=== PATIENT | male | born 1955 | race Caucasian/White ===

== ENCOUNTER 2024-06-29 10:14 | Inpatient (IN) | payer OTHER ==
--- OUTSIDE RECORDS SUMMARY | 2024-06-29 10:20 | XMS REPORT | Continuity of Care Document ---
Author Name Unknown Address [address] [facility] [address] [place] [address] [facility] thconnect Address [address] [facility] [place] [address] Care Team Providers Care Shingle Grader Name Role Phone KARINA HERNANDEZ Primary Care Physician Unavailab Karina Guevara Attending Clinician Unavailable MARIA ELENA SCOTT Attending Clinician Unavailable Maria Elena Scott Attending Clinician Unavailable ADA TRUJILLO Attending Clinician UnavailValente Singh MD Attending Clinician [phone] VALENTE HAMPTON Attending Clinician Unavailabl e Doctor Unassigned, [place] Attending Clinician U SHERRI Valdez Attending Clinician UnavailSherri Seth DO Attending Clinician [phone] Karina Hernandez Admitting Clinician Unavailable Maria Elena Scott Admitting Clinician Unavailable SHERRI BENNETT Admitting Clinician Addy batres Payers Payer Name Policy Type Policy Number Effective Date Expirati on Date Source MEDICARE PART A AND B [id number] 2020 00:00:00 Problems Condition Name Condition Details Condition Category Status Onset Date Resolution Date Last Treatment Date Treating Clinician Comments Source Essential hypertensi on Essential hypertensi on Disease Active 2022-09 00:00: 00 [facility] Dyslipidem ia Dyslipidem ia Disease Active 2022-09 00:00: 00 [facility] H/O aortic valve replacemen t H/O aortic valve replacemen t Disease Active 2022-09 00:00: 00 [facility] CAD (coronary artery disease) CAD (coronary artery disease) Disease Active 2022-09 00:00: 00 [facility] Atrial flutter Atrial flutter Disease Active 2022-09 00:00: 00 [facility] [id number] BPH loc w urin obs/LUTS Problem Active [facility] [id number] Ureterolit hiasis Problem Active [facility] [id number] Kidney stones Problem Active [facility] No known active problems No known active problems Disease [facility] Allergies, Adverse Reactions, Alerts Allergy Name Allergy Type Status Severity Reaction(s) Onset Date Inactive Date Treating Clinician Comments Source No Known Allergie s DA Active U 2022-09 00:00: 00 [facility] NO KNOWN ALLERGIE S Drug Class Active [facility] Social History Social Habit Start Date Stop Date Quantity Comments Source Sexual orientation [facility] History of Tobacco Use [facility] Alcoholic beverage intake 2024-01-17 00:00:00 2024-01-17 00:00:00 Current drinker of alcohol (finding) [facility] History of Social function 2024-01-17 00:00:00 2024-01-17 00:00:00 [facility] Tobacco use and exposure 2023-07-20 00:00:00 2023-07-20 00:00:00 Smokeless tobacco non-user [facility] Alcohol intake 2023-07-20 00:00:00 2023-07-20 00:00:00 Current drinker of alcohol (finding) [facility] Alcohol Comment 2023-07-20 00:00:00 2023-07-20 00:00:00 rare [facility] Exposure to SARS-CoV-2 (event) 2022-01-10 00:00:00 2022-01-20 09:08:00 Not sure [facility] Sex assigned at 1955 00:00:00 1955 00:00:00 [facility] Smoking Status Start Date Stop Date Source Never smoked tobacco [facility] Unknown if ever smoked Unive [facility] Medications Ordered Medication Name Filled Medication Name Start Date Stop Date Current Medication? Ordering Clinician Indication Dosage Frequency Signature (SIG) Comments Components Source albuterol (ProAir HFA) 108 (90 Base) MCG/ACT inhaler 12-05 10:31: 50 Yes 2{puff} Q6H Inhale 2 puffs every 6 (six) hours if needed. [facility] ASPIRIN 81 MG chewable tablet 12-05 10:31: 50 Yes 81mg QD Chew 81 mg 1 (one) time each day. [facility] atorvastati n (Lipitor) 40 MG tablet 12-05 10:31: 50 Yes 40mg QD Take 40 mg by mouth 1 (one) time each day. [facility] Metoprolol Tartrate 75 MG tablet 12-05 10:31: 50 Yes 100mg Q12H 100 mg every 12 (twelve) hours. [facility] OneOpenFeintuch Verio test strip 10-15 00:00: 00 Yes 1{each} 1 each by Other route if needed. [facility] Lancets (OneTouch Delica Plus [id number]) [facility] 10-15 00:00: 00 Yes 1{rachel t} QD 1 Lancet by Other route 1 (one) time each day. USE 1 TO CHECK GLUCOSE ONCE DAILY [facility] albuterol (ProAir HFA) 108 (90 Base) MCG/ACT inhaler 2022-09 09:18: 52 Yes 2{puff} Q6H Inhale 2 puffs every 6 (six) hours if needed. [facility] ASPIRIN 81 MG chewable tablet 2022-09 09:18: 52 Yes 81mg QD Chew 81 mg 1 (one) time each day. [facility] atorvastati n (Lipitor) 40 MG tablet 2022-09 09:18: 52 Yes 40mg QD Take 40 mg by mouth 1 (one) time each day. [facility] Metoprolol Tartrate 75 MG tablet 2022-09 09:18: 52 Yes 75mg Q12H 75 mg every 12 (twelve) hours. [facility] Eliquis 5 MG tablet 2022-09 2-05 00:00: 00 Yes 5mg Q.5D Take 5 mg by mouth in the morning and 5 mg before bedtime. [facility] albuterol (ProAir HFA) 108 (90 Base) MCG/ACT inhaler 2022-09 13:16: 26 Yes 2{puff} Q6H Inhale 2 puffs every 6 (six) hours if needed. [facility] ASPIRIN 81 MG chewable tablet 2022-09 13:16: 26 Yes 81mg QD Chew 81 mg 1 (one) time each day. [facility] atorvastati n (Lipitor) 40 MG tablet 2022-09 13:16: 26 Yes 40mg QD Take 40 mg by mouth 1 (one) time each day. [facility] Metoprolol Tartrate 75 MG tablet 2022-09 13:16: 26 Yes 75mg Q12H 75 mg every 12 (twelve) hours. [facility] metFORMIN XR (Glucophage -XR) 500 MG 24 hr tablet 2022-09 010 00:00: 00 Yes TAKE 2 TABLETS BY MOUTH IN THE MORNING AND ONE IN THE EVENING. [facility] predniSONE (Deltasone) 10 MG tablet 9-21 00:00: 00 Yes 10mg Q.5D Take 10 mg by mouth in the morning and 10 mg before bedtime. prn. [facility] Flomax 0.4 MG Flomax 0.4 MG 3-10 00:00: 00 -06 00:00 :00 No 1{capsu le} QD Flomax 0.4 MG aspirin 81 mg EC tablet 01-26 19:29: 41 Yes 81mg Take 81 mg by mouth daily. [facility] atorvastati n 40 mg tablet 01-26 19:29: 41 Yes 40mg Take 40 mg by mouth at bedtime. [facility] metoprolol tartrate 50 mg tablet 01-26 19:29: 41 Yes 50mg Take 50 mg by mouth 2 (two) times daily. [facility] ProAir HFA 108 (90 Base) MCG/ACT ProAir HFA 108 (90 Base) MCG/ACT No 1{puff_ as_need ed} 6xD ProAir HFA 108 (90 Base) MCG/ACT Lipitor 40 MG Lipitor 40 MG No 1{table t} QD Lipitor 40 MG Metoprolol Tartrate 75 MG Metoprolol Tartrate 75 MG No 1{table t_with_ food} BID Metoprolol Tartrate 75 MG Aspirin 81 81 MG Aspirin 81 81 MG No 1{table t} QD Aspirin 81 81 MG Vital Signs Vital Name Observation Time Observation Value Comments S ource Systolic blood pressure 2024-01-17 15:13:00 131 mm[Hg] [facility] Diastolic blood pressure 2024-01-17 15:13:00 88 mm[Hg] [facility] Heart rate 2024-01-17 15:13:00 73 /min [facility] Body height 2024-01-17 15:13:00 188 [facility] Body weight 2024-01-17 15:13:00 104.327 [facility] BMI 2024-01-17 15:13:00 29.53 kg/m2 [facility] Systolic blood pressure 2023-12-06 15:32:00 137 mm[Hg] [facility] Diastolic blood pressure 2023-12-06 15:32:00 92 mm[Hg] [facility] Heart rate 2023-12-06 15:32:00 62 /min [facility] height 2023-12-06 15:32:00 [facility].5 [facility] Body weight 2023-12-06 15:32:00 [facility]327 [facility] BMI 2023-12-06 15:32:00 28.75 kg/m2 [facility] Systolic blood pressure 2023-08-30 15:19:00 127 mm[Hg] [facility] Diastolic blood pressure 2023-08-30 15:19:00 87 mm[Hg] [facility] Heart rate 2023-08-30 15:19:00 76 /min [facility] Body height 2023-08-30 15:19:00 188 [facility] Body weight 2023-08-30 15:19:00 105.235 [facility] BMI 2023-08-30 15:19:00 29.79 kg/m2 [facility] Systolic blood pressure 2023-07-20 19:13:00 138 mm[Hg] [facility] Diastolic blood pressure 2023-07-20 19:13:00 91 mm[Hg] [facility] Heart rate 2023-07-20 19:13:00 76 /min [facility] Body weight 2023-07-20 19:13:00 107.502 kg [facility] ealt Systolic blood pressure 2022-01-20 14:25:00 121 mm[Hg] [facility] Diastolic blood pressure 2022-01-20 14:25:00 84 mm[Hg] [facility] Heart rate 2022-01-20 14:25:00 76 /min [facility] Body height 2022-01-20 14:25:00 188 cm [facility] Body weight 2022-01-20 14:25:00 106.595 kg [facility] BMI 2022-01-20 14:25:00 30.17 kg/m2 [facility] height 2021-11-18 16:00:00 72 [in_i] Commo n [facility] weight 2021-11-18 16:00:00 142.8 [lb_av] Co mmon [facility] temperature 2021-11-18 16:00:00 97.6 [degF] Com mon [facility] bmi 2021-11-18 16:00:00 19.37 kg/m2 Comm on [facility] oximetry 2021-11-18 16:00:00 96 % Commo n [facility] respiratory rate 2021-11-18 16:00:00 16 /min [facility] blood pressure systolic 2021-11-18 16:00:00 135 mm[Hg] [facility] blood pressure diastolic 2021-11-18 16:00:00 89 mm[Hg] [facility] Procedures Procedure Date / Time Performed Performing Clinicia n Source ECG 12-LEAD 2024-01-20 03:44:52 Maria Elena Scott [facility] 12-LEAD 2023-12-07 01:55:38 [facility] 12-[facility]AD 2023-08-30 15:41:33 [place] laws [facility] ECG 12-LEAD 2023-07-24 01:03:52 Maria Elena Scott [facility] Encounters Start Date/Time End Date/Time Encounter Type Admission Type Attending [facility] Care Department Encounter ID Source 2021-11-18 15:20:03 Outpatient Karina Hernandez [facility] [id number] [facility] 2024-01-17 12:00:00 2024-01-17 12:00:00 Outpatient MARIA ELENA SCOTT [facility] [id number] [facility] 2024-01-17 10:00:00 2024-01-17 10:25:12 Office Visit Maria Elena Scott [facility] [id number] [facility] 2023-12-22 05:20:00 2023-12-22 05:20:00 Outpatient Maria Elena Narayan [facility] [id number] [facility] 2023-12-06 10:15:00 2023-12-06 11:19:52 Office Visit Maria Elena Scott [facility] [id number] [id number] [facility] 2023-11-29 14:00:00 2023-11-29 14:00:00 Outpatient TRUJILLOADA [facility] [id number] [facility] 2023-08-30 09:30:00 2023-08-30 09:53:25 Office Visit [place] laws [facility] [id number] [facility] 2023-08-15 07:30:00 2023-08-15 07:30:00 Outpatient MARIA ELENA SCOTT [facility] [id number] [facility] 2023-08-15 05:21:00 2023-08-15 05:21:00 Outpatient Maria Elena Narayan [facility] [id number] [facility] 2023-07-20 13:15:00 2023-07-20 13:33:10 Office Visit Maria Elena Scott [facility] [id number] [id number] [id number] [facility] 2022-01-20 10:30:00 2022-01-20 10:30:00 Office Visit Valente Hampton [facility] [id number] [id number] [id number] [id number] [facility] 2022-01-20 10:30:00 2022-01-20 09:32:04 Outpatient R VALENTE HAMPTON [facility] [id number] [facility] 2022-01-20 00:00:00 2022-01-20 00:00:00 Orders Only Doctor Unassigned, [place] [facility] [id number] [id number] [id number] [id number] [facility] 2021-11-18 00:00:00 2021-11-18 00:00:00 OFFICE VISIT NEW PT LEVEL 3 STLMLC STLMLC [id number] [facility] 2021-01-26 19:17:00 2021-01-26 21:00:00 Emergency X SHERRI BENNETT [facility] [id number] [facility] 2021-01-26 19:17:00 2021-01-26 21:00:00 Emergency Sherri Bennett [facility] [id number] [id number] [id number] [facility] 2021-01-26 19:10:00 2021-01-26 19:10:00 Emergency X [facility] ERT [id number] [facility] 2021-01-05 21:48:00 2021-01-06 00:09:00 Emergency Sherri Bennett [facility] [id number] [id number] [id number] [id number] [facility] 2021-01-05 21:48:00 2021-01-05 21:48:00 Emergency X SHERRI BENNETT [facility] ERT [id number] [facility] Results Test Description Test Time Test Comments Results Result Co mments Source ECG 12 lead 2024-01-20 03:44:52 Sinus Rhythm -First degree A-V block Suzanne = 268BORDERLINE RHYTHM [facility] GLUCOSE [id number] 07:19:00* Test Item Value Reference Range Interpretation Comme nts GLUCOSE BEDSIDE (test code = GLUBED) 100 MG/DL 70-110 N Performed by cer tified broke beater operator at [facility] BASIC METABOLIC [id number] 12:21:00* Test Item Value Reference Range Interpretation Comme nts SODIUM (test code = NA) 144 mEq/L 134-147 N POTASSIUM (test code = K) 4.4 mEq/L 3.4-5.0 N CHLORIDE (test code = CL) 110 mEq/L 100-108 H CARBON DIOXIDE (test code = CO2) 31 mEq/l 21-33 N ANION GAP (test code = GAP) 7 0-20 N GLUCOSE (test code = GLU) 108 mg/dL 77-141 N BLOOD UREA NITROGEN (test code = BUN) 11 mg/dL 7-25 N GLOMERULAR FILTRATION RATE (test code = GFR) 96.4 80-90 H The Glomerular Filtration Rate is a calculated parameterbased on serum Creatinine, patient age and sex. GFR valuesless than 60 mL/min/1.73 square meters are indicative ofChronic Kidney Disease. Values less than 15 mL/min/1.73square meters indicate Kidney failure. The calculation forGFR is based on the CKD-EPI (2020) calculation. This formulais race indifferent and is the recommended formula for GFRby the National Kidney Foundation for Adults.The GFR will not calculate if the sex is unknown or if thepatient's age is <18 years. CREATININE (test code = CREAT) 0.8 mg/dL 0.6-1.3 N CALCIUM (test code = CA) 9.3 mg/dL 8.0-10.5 N PROTHROMBIN [id number] 12:11:00* Test Item Value Reference Range Interpretation Comme nts PROTHROMBIN TIME PATIENT (test code = PTP) 13.1 SECONDS 9.3-12.9 H INTERNATIONAL NORMAL RATIO (test code = INR) 1.2 0.8-1.2 N TARGET INR BY INDICATION Indication INR1. Prophylaxis of venous thrombosis 2.0 - 3.0 (orthopedic surgery), Prophylaxis of venous thrombosis (other than high-risk surgery), Treatment of Deep Vein Thrombosis/Pulmonary Embolism, Prevention of systemic embolism - Tissue heart valves, Acute Myocardial Infarction (to prevent systemic embolism), Valvular heart disease, Atrial Fibrillation, Bileaflet mechanical valve in aortic position.2. Mechanical prosthetic valves (high risk), 2.5 - 3.5 Presence of Lupus Anticoagulant or Antiphospholipid Antibodies, Prevention of systemic embolism - Acute Myocardial Infarction (to prevent recurrent infarct). CBC W/AUTO [id number] 12:01:00* Test Item Value Reference Range Interpretation Comme nts WHITE BLOOD CELL (test code = WBC) 8.8 x10 3/uL 4.5-11.0 N RED BLOOD CELL (test code = RBC) 4.96 x10 6/uL 4.00-5.60 N HEMOGLOBIN (test code = HGB) 13.2 g/dL 12.5-16.9 N HEMATOCRIT (test code = HCT) 42.4 % 37.5-50.7 N MEAN CELL VOLUME (test code = MCV) 85.5 fL 81.0-99.0 N MEAN CELL HGB (test code = MCH) 26.6 pg 27.0-33.0 L MEAN CELL HGB CONCETRATION (test code = MCHC) 31.1 g/dL 33.0-37.0 L RED CELL DISTRIBUTION WIDTH CV (test code = RDW) 14.5 % 11.5-14.5 N RED CELL DISTRIBUTION WIDTH SD (test code = RDW-SD) 45.4 fL 37.0-54.0 N PLATELET COUNT (test code = PLT) 184 x10 3/uL 150-400 N MEAN PLATELET VOLUME (test c ode = MPV) 10.9 fL 7.0-9.0 H NEUTROPHIL % (test code = NT%) 72.5 % 56.0-77.0 N IMMATURE GRANULOCYTE % (test code = IG%) 0.6 % 0.0-2.0 N LYMPHOCYTE % (test code = LY%) 15.8 % 14.0-32.0 N MONOCYTE % (test code = MO%) 8.1 % 4.8-9.0 N EOSINOPHIL % (test code = EO%) 2.4 % 0.3-3.7 N BASOPHIL % (test code = BA%) 0.6 % 0.0-2.0 N NUCLEATED RBC % (test code = NRBC%) 0.0 % 0-0 N NEUTROPHIL # (test code = NT#) 6.37 x10 3/uL 2.0-7.6 N IMMATURE GRANULOCYTE # (test code = IG#) 0.05 x10 3/uL 0.00-0.03 H LYMPHOCYTE # (test code = LY#) 1.39 x10 3/uL 1.0-3.8 N MONOCYTE # (test code = MO#) 0.71 x10 3/uL 0.1-0.8 N EOSINOPHIL # (test code = EO#) 0.21 x10 3/uL 0.0-0.2 H BASOPHIL # (test code = BA#) 0.05 x10 3/uL 0.0-0.2 N NUCLEATED RBC # (test code = NRBC#) 0.00 x10 3/uL 0.0-0.1 N ECG 12 [id number] 01:55:38Sinus Rhythm -First degree A-V block Suzanne = 240BORDERLINE RHYTHMUT HealthECG 12 [id number] 15:41:33Sinus Rhythm -First degree A-V block Suzanne = 254 BORDERLINE RHYTHMUT HealthGLUCOSE [id number] 20:19:00* Test Item Value Reference Range Interpretation Comme nts GLUCOSE BEDSIDE (test code = GLUBED) 157 MG/DL 70-110 H Performed by cer tified broke beater operator at [facility] [id number] 10:40:00* Test Item Value Reference Range Interpretation Comme nts ACT-ISTAT (test code = ACTI) 347 SEC 74-137 H Performed by cer tified broke beater operator at [facility] [id number] 10:14:00* Test Item Value Reference Range Interpretation Comme nts ACT-ISTAT (test code = ACTI) 336 SEC 74-137 H Performed by cer tified broke beater operator at [facility] [id number] 09:57:00* Test Item Value Reference Range Interpretation Comme nts ACT-ISTAT (test code = ACTI) 342 SEC 74-137 H Performed by cer tified broke beater operator at [facility] [id number] 09:35:00* Test Item Value Reference Range Interpretation Comme nts ACT-ISTAT (test code = ACTI) 336 SEC 74-137 H Performed by cer tified broke beater operator at [facility] [id number] 09:15:00* Test Item Value Reference Range Interpretation Comme nts ACT-ISTAT (test code = ACTI) 309 SEC 74-137 H Performed by cer tified broke beater operator at [facility] [id number] 08:58:00* Test Item Value Reference Range Interpretation Comme nts ACT-ISTAT (test code = ACTI) 266 SEC 74-137 H Performed by cer tified broke beater operator at [facility] GLUCOSE [id number] 06:29:00* Test Item Value Reference Range Interpretation Comme nts GLUCOSE BEDSIDE (test code = GLUBED) 100 MG/DL 70-110 N Performed by cer tified broke beater operator at [facility] - XR CHEST 2 [id number] 11:49:00 [facility] 1955 Sex: M FAX: Karina Aguilar MD [phone] [place]: [address]: PRE FAX: Maria Elena Scott MD [phone] Name: BRIDGER RUCKER [facility] [place] : 1955 Age/S: 67/M [address] [place] [address] Blvd Unit #: [id number] [place]: [place] [address] Phys: Maria Elena Scott MD Acct: [id number] Dis Date: Status: PRE SDC PHONE #: [phone] Exam Date: 08/11/20231116 FAX #: [phone] Reason: PRE OP EXAMS: CPT CODE: [id number] XR CHEST 2 V 68558 CLINICAL INFORMATION: PRE OP Dictation Location: A 1 COMPARISON: None. FINDINGS: Frontal and lateralviews show sternal wire sutures, aortic valve replacement, and Atri clip in place. The heart size is within normal limits. There is mild aortic tortuosity. Lungs are hyperexpanded with minimal bibasilar atelectasis. There is mild degenerative change in the spine. IMPRESSION: Postoperative changes. Left basilar atelectasis. at 1149 Reported and signed by: Elías Escalante M.D. CC: Karina Hernandez MD; Maria Elena Scott MD Technologist: RT Fabio(Pastor) Trnscrd Date/Time/By: 08/11/2023 (2414) : By: AlexandrAGV Orig Print D/T: S:08/11/2023 (0299) PAGE 1 Signed ReportPROTHROMBIN [id number] 11:23:00* Test Item Value Reference Range Interpretation Comme nts PROTHROMBIN TIME PATIENT (test code = PTP) 13.4 SECONDS 9.3-12.9 H INTERNATIONAL NORMAL RATIO (test code = INR) 1.2 0.8-1.2 N TARGET INR BY INDICATION Indication INR1. Prophylaxis of venous thrombosis 2.0 - 3.0 (orthopedic surgery), Prophylaxis of venous thrombosis (other than high-risk surgery), Treatment of Deep Vein Thrombosis/Pulmonary Embolism, Prevention of systemic embolism - Tissue heart valves, Acute Myocardial Infarction (to prevent systemic embolism), Valvular heart disease, Atrial Fibrillation, Bileaflet mechanical valve in aortic position.2. Mechanical prosthetic valves (high risk), 2.5 - 3.5 Presence of Lupus Anticoagulant or Antiphospholipid Antibodies, Prevention of systemic embolism - Acute Myocardial Infarction (to prevent recurrent infarct). BASIC METABOLIC [id number] 11:23:00* Test Item Value Reference Range Interpretation Comme nts SODIUM (test code = NA) 142 mEq/L 134-147 N POTASSIUM (test code = K) 4.0 mEq/L 3.4-5.0 N CHLORIDE (test code = CL) 108 mEq/L 100-108 N CARBON DIOXIDE (test code = CO2) 30 mEq/l 21-33 N ANION GAP (test code = GAP) 8 0-20 N GLUCOSE (test code = GLU) 132 mg/dL 77-141 N NOTE: NEW NORMAL RANGE BLOOD UREA NITROGEN (test code = BUN) 15 mg/dL 7-25 N NOTE: NEW NORM AL RANGE GLOMERULAR FILTRATION RATE (test code = GFR) 93.6 80-90 H The Glomerular Filtration Rate is a calculated parameterbased on serum Creatinine, patient age and sex. GFR valuesless than 60 mL/min/1.73 square meters are indicative ofChronic Kidney Disease. Values less than 15 mL/min/1.73square meters indicate Kidney failure. The calculation forGFR is based on the CKD-EPI (2020) calculation. This formulais race indifferent and is the recommended formula for GFRby the National Kidney Foundation for Adults.The GFR will not calculate if the sex is unknown or if thepatient's age is <18 years. CREATININE (test code = CREAT) 0.9 mg/dL 0.6-1.3 N CALCIUM (test code = CA) 8.9 mg/dL 8.0-10.5 N CBC W/AUTO [id number] 11:05:00* Test Item Value Reference Range Interpretation Comme nts WHITE BLOOD CELL (test code = WBC) 9.8 x10 3/uL 4.5-11.0 N RED BLOOD CELL (test code = RBC) 5.14 x10 6/uL 4.00-5.60 N HEMOGLOBIN (test code = HGB) 13.9 g/dL 12.5-16.9 N HEMATOCRIT (test code = HCT) 44.3 % 37.5-50.7 N MEAN CELL VOLUME (test code = MCV) 86.2 fL 81.0-99.0 N MEAN CELL HGB (test code = MCH) 27.0 pg 27.0-33.0 N MEAN CELL HGB CONCETRATION (test code = MCHC) 31.4 g/dL 33.0-37.0 L RED CELL DISTRIBUTION WIDTH CV (test code = RDW) 14.5 % 11.5-14.5 N RED CELL DISTRIBUTION WIDTH SD (test code = RDW-SD) 46.2 fL 37.0-54.0 N PLATELET COUNT (test code = PLT) 204 x10 3/uL 150-400 N MEAN PLATELET VOLUME (test c ode = MPV) 11.3 fL 7.0-9.0 H NEUTROPHIL % (test code = NT%) 76.3 % 56.0-77.0 N IMMATURE GRANULOCYTE % (test code = IG%) 0.4 % 0.0-2.0 N LYMPHOCYTE % (test code = LY%) 13.2 % 14.0-32.0 L MONOCYTE % (test code = MO%) 6.9 % 4.8-9.0 N EOSINOPHIL % (test code = EO%) 2.6 % 0.3-3.7 N BASOPHIL % (test code = BA%) 0.6 % 0.0-2.0 N NUCLEATED RBC % (test code = NRBC%) 0.0 % 0-0 N NEUTROPHIL # (test code = NT#) 7.48 x10 3/uL 2.0-7.6 N IMMATURE GRANULOCYTE # (test code = IG#) 0.04 x10 3/uL 0.00-0.03 H LYMPHOCYTE # (test code = LY#) 1.29 x10 3/uL 1.0-3.8 N MONOCYTE # (test code = MO#) 0.68 x10 3/uL 0.1-0.8 N EOSINOPHIL # (test code = EO#) 0.25 x10 3/uL 0.0-0.2 H BASOPHIL # (test code = BA#) 0.06 x10 3/uL 0.0-0.2 N NUCLEATED RBC # (test code = NRBC#) 0.00 x10 3/uL 0.0-0.1 N Notes Date/Time Note Provider Source 2023-12-22 18:15:00 [facility] ([facility]) DT Operative Note REPORT#:[id number] REPORT STATUS: Signed REPORT INITIALIZATION DATE:12/22/23 TIME: 1814 PATIENT: BRIDGER RUCKER UNIT #: [id number] ROOM/BED: : 55 AGE: 68 SEX: M ATTEND: Maria Elena Scott MD ADM AUTHOR: Maria Elena Scott MD REPT SERVICE DT/TIME: 12/22/231814 * ALL edits or amendments must be made on the electronic/computer document * Operative Report Operative Note Note: ATRIAL TACHYCARDIA ABLATION PROCEDURE NOTE Procedure Date: 12/22/2023 Operators: Maria Elena Scott MD.. Pre-Op Diagnosis: SVT Post-Op Diagnosis: Focal atrial tachycardia. Procedure: 1. Comprehensive diagnostic electrophysiologic study with programmed stimulation. 2. Coronary sinus pacing and recording. 3. 3-D electroanatomic mapping of SVT with MARIA ELENA. 4. right atrial mapping. 5. Radiofrequency ablation of SVT: focal AT from lateral RA wall. 6. EP study attempted induction of arrhythmia after drug infusion ( isoproterenol). 7. Central venous line placement x4 Access: RFV1: 8F for RA quad catheter->Agilis for ablation catheter. RFV2: 6F - RA quad catheter LFV1: 6F HIS quad catheter LFV2: 6F - Decapolar CS catheter Procedure Summary/Findings: The risks, benefits, alternatives and anticipated results of EP study, sedation, ablation, and cardioversion were explained before the procedure. Risks explained include cardiac tamponade, pneumothorax, bleeding, infection, vascular injury, heart block, AZ, CVA, emergent sternotomy, intubation, . Written informed consent was obtained. The patient was reassessed prior to the procedure, including airway, physical status vitals. The patient was deemed appropriate to proceed with MAC sedation. The area overlying the right and left groin was prepped and draped in the usual sterile fashion. The inguinal regions were infiltrated with 2% lidocaine to provide local anesthesia. The above-mentioned sheaths were placed in their respective locations using the modified Seldinger technique. Under fluoroscopic guidance, the above catheters were placed in the noted intracardiac locations and attached to a multi-channel amplifier-recorder. The CS catheter was inserted through the access described above placed in the coronary sinus. Presenting rhythm/EKG: NSR Standardized diagnostic EP testing was performed with atrial pacing recording, ventricular pacing recording, and His recording with attempted induction of arrhythmia: Conduction intervals: RR - 950 ms HI - 244 ms QRS - 90 ms QT - 420 ms AH - 100 ms HV - 69 ms AV Wenkebach - 530 ms, No evidence of HI>RR. VA Wenkebach No VA conduction at baseline or after Isoproterenol infusion. AVNERP 600/480 ms Anterograde conduction: midline decremental Retrograde conduction: midline decremental Dual AVN physiology: AH jump wiith no echo beats Stimulation protocol: Burst pacing was done from CS and RA down to 250 ms. Atrial extra stimuli testing was performed at a drivetrain of 600 ms with singles, doubles. Patient was getting episodes of tachycardia with extrastimulus pacing at PCL 500/350 ms. TCL was 480 ms with narrow complex tachycardia with long with 1:1 AV conduction with long VA time around 200 Ms. Atrial activation was eccentric with earliest activation noted near the HRA catheter. Entrainment from RVa showed AV dissociation. HD Grid catheter was then advanced into the RA and 3D electroanatomical mapping was performed during tachycardia that showed earliest activation is coming from high lateral RA wall. The earliest pre-P local EGM was 20-30 Ms. Unipolar signal did show QS signal from that site. A TactiFlex ablation catheter was then advanced to the area of interest. Radiofrequency energy was then delivered at 30 romano to this region of interest leading to termination of the AT. Additional consolidation lesions were applied in this region. Stimulation protocol: Burst pacing was done from CS and RA down to 250 ms. Atrial extra stimuli testing was performed at a drivetrain of 600 ms with singles, doubles. Ventricular burst pacing was performed down to 400 ms. Isoproterenol infusion was started and uptitrated to 3 mcg/min. Additional EP testing was performed. No further arrhythmias were induced. At the conclusion of the procedure, normal heart border was noted on fluoroscopy via ARMENIAN view. The catheters and sheaths were removed, and hemostasis was accomplished by direct pressure. The patient tolerated the procedure well and was returned to a telemetry bed in stable condition. Estimated Blood Loss: Minimal Blood Administered: None Grafts or Implants: NA Any Specimen Removed: None Complications: None Anesthesia: Moderate conscious sedation utilized Medications: Isoproterenol Conclusion: 1. SVT with EP Study mapping revealing focal atrial tachycardia from high lateral RA wall. 2. Ablation of focal AT. 3. Non-inducible tachycardia after ablation with Isoproterenol testing. 4. Normal SA AV skyler function. 5. No apparent immediate complications. Post-Procedure Plan: 1. Observe as outpatient. Can be discharged after assigned bedrest completed. 2. Bedrest for 4 hours. 3. Resume cardiac diet. 4. Anticoagulation: continue AC for Hx of AF 5. Anti-arrhythmic agent: continue on BB. 6. Follow-up in 2 weeks in EP Clinic. at 1824 RPT #:[id number] END OF REPORT [facility] 2023-08-15 21:28:00 [facility] DT Operative Note REPORT#:[id number] REPORT STATUS: Signed REPORT INITIALIZATION DATE:08/15/23 TIME: 2127 PATIENT: BRIDGER RUCKER UNIT #: [id number] ROOM/BED: : 55 AGE: 67 SEX: M ATTEND: Maria Elena Scott MD ADM AUTHOR: Maria Elena Scott MD REPT SERVICE DT/TIME: 08/15/232127 * ALL edits or amendments must be made on the electronic/computer document * Operative Report Operative Note Note: Atrial fibrillation ablation procedure note. Procedure Date: 08/15/2023 Operators: Maria Elena Scott MD. Pre-Op Diagnosis: Symptomatic Paroxysmal atrial fibrillation and flutter. Post-Op Diagnosis: Same Procedure: 1. Comprehensive diagnostic electrophysiologic study with programmed stimulation 2. Coronary sinus pacing and recording 3. Intracardiac echocardiography 4. Two transseptal punctures 5. 3-D electroanatomic mapping of SVT with MARIA ELENA 6. Left atrial mapping 7. Radiofrequency ablation: pulmonary vein isolation, linear RA (CTI). 8. Ablation evaluation with drug infusion (adenosine) 9. Central venous line placement x4 Access: RFV1: 8F -> transseptal SL1 sheath -> Agilis sheath for ablation catheter RFV2: 8F -> transseptal SL1 for mapping catheter LFV1: 10 F - ICE LFV2: 8F - Decapolar CS catheter. Procedure Summary/Findings: The risks, benefits, alternatives and anticipated results of EP study, sedation, ablation, and cardioversion were explained before the procedure. Risks explained include cardiac tamponade, pneumothorax, bleeding, infection, vascular injury, heart block, AZ, CVA, emergent sternotomy, intubation, . Written informed consent was obtained. The patient was reassessed prior to the procedure, including airway, physical status vitals. Patient was deemed appropriate to proceed with general anesthesia. The patient was monitored sedated by the anesthesia staff. A radial arterial line was placed by anesthesia staff at onset of the case. The area overlying the right and left groin was prepped and draped in the usual sterile fashion. The above mentioned sheaths were placed in their respective locations using the modified Seldinger technique. ICE catheter was inserted through the larger left sided venous sheath advanced into the right atrium. There was tarce effusion was noted at baseline. The CS catheter was inserted through the access described above placed in the coronary sinus. CS singnal showed atrial flutter with proximal to distal activation. TCL 265 ms, 3-D electroanatomic mapping of the right atrium was performed using the Office [employer] mapping system. This showed clockwise CTI dependent flutter. With cavotricuspid isthmus dependent atrial flutter confirmed, an RF ablation catheter was positioned at the right atrial CTI isthmus using agilis long sheath . Radiofrequency energy was then delivered at 35 romano in the CTI region in a linear fashion from the tricuspid annulus to the inferior vena cava. Lesion set was created midline on the CTI. Flutter was terminated during RF application. After successful termination of AFL and completion of the ablation line, bidirectional differential atrial pacing from the CS as well as from the ablation catheter at a site just lateral to the CTI line and a site further lateral in right atrium confirmed bidirectional block. The timing from CS os to lateral CTI was 260 ms and to a more lateral annular location was 140 ms. The timing from lateral CTI to CS os was 240 ms and from a more lateral annular location was 180 ms. Isthmus conduction block was also confirmed with visualization of double potentials recorded along the ablation line. With SL1 transseptal sheath and transseptal access was obtained in the standard fashion using the Alfredo needle with biplane fluoroscopy and ICE guidance. 10, 000 units of IV heparin was then administered intravenously once appropriate left atrial access was confirmed. Subsequent doses of IV heparin were administered to achieve a target ACT of 350s throughout the duration of the left sided procedure. The SL1 was exchanged over a long wire for an Agilis sheath. A second trans-septal puncture was performed in a similar manner without any complications. The TactiCath irrigated ablation catheter was passed to the left atrium through the Agilis sheath and a mapping catheter was advanced into the left atrium through the SL1 sheath. A 3-D electroanatomic map of the left atrium was created using the [employer] mapping system. this showed connected 4 veins. Radiofrequency applications were applied using fluoroscopy, ICE and 3-D mapping guidance to document each lesion. RFA was delivered mostly at 40 romano on the posterior aspect of the veins 40 romano on the anterior aspect of the veins. RFA was delivered in WACA fashion approximately 1 cm outside the ostium circumferentially around each vein until the veins were electrically isolated and anatomically encircled with confirmation of entrance block. Esophageal temperature was monitored close with an esophageal probe placed by anesthesia. At the end of WACA, entrance block was re-confirmed in all veins, along with exit block which was verified by pacing around the Lasso. Adenosine 12 mg was given for each vein to further check for re-connection. Presenting rhythm/EKG: Atrial flutter Standardized diagnostic EP testing was performed with atrial pacing recording, _ventricular pacing recording, and His recording with attempted induction of arrhythmia: Conduction intervals: RR - 1010 ms HI - 230 ms QRS - 90 ms QT - 460 ms AH - 110 ms HV - 70 ms AV Wenkebach - 360 ms, evidence of HI>RR AVNERP - 550/250 ms AERP - <550/190 ms Anterograde conduction: midline decremental Retrograde conduction: midline decremental Dual AVN physiology: evident with AH jump and crossing over, no echo beats. Stimulation protocol: Burst pacing was done from CS down to wenckebach. Additional burst pacing was done at 250 ms. Atrial extrastimuli testing was performed from the CS at a drivetrain of 550 ms with singles. An ICE survey at the end showed no pericardial effusion. Normal heart border was noted on fluoroscopy via ARMENIAN view. 40 mg of IV protamine was given to reverse anticoagulation. The catheters were removed from the body. The long sheaths were removed and exchanged for shorter sheaths_. The access sheaths were removed hemostasis was achieved with manual pressure once ACT was < 170 s. The patient tolerated the procedure well and was returned to a telemetry bed in stable condition. Opening LA pressure: 11 mmHg Estimated Blood Loss: Minimal Blood Administered: None Grafts or Implants: NA Any Specimen Removed: None Complications: None_ Anesthesia: General anesthesia (see anesthesiology note for exact medications/ doses). Medications: Heparin, Adenosine, Protamine. Conclusion: 1. Paroxysmal AF/AFL with atrial flutter on presentation. 2. s/p previous surgical ablation. All pulmonary veins were still connected, now isolated with entrance/exit block with adenosine testing. 3. Cavotricuspid isthmus ablation 4. Non-inducible tachycardia after ablation with burst pacing _and Isoproterenol testing 5. No apparent immediate complications Post-Procedure Plan: 1. Observe patient at holding area, can be discharged after assigned bed rest. 2. Bedrest for 4 hours. 3. Resume cardiac diet. 4. Remove Hoang catheter when mobilizing. 5. Anticoagulation: Eliquis 5 mg PO BID to start 6 hours after sheath removal provided hemostasis is secured for 6 weeks. 6. Anti-arrhythmic agent: none. 7. Start PPI for 1 month as gastric protection. 8. Start Sucralfate 1 gm TID/AC for 2 weeks. 9. Follow-up in 2 weeks in EP Clinic. at 2154 [facility] #:[id number] END OF REPORT [facility] 2023-08-15 11:21:00 [id number] [address] PATIENT NAME: BRIDGER RUCKER ADMIT DATE: 08/15/23 ACCOUNT NO: [id number] ROOM NO: AGE: 67 REPORT TYPE: eELECTROCARDIOGRAM REPORT SEX: M ADMITTING PHYSICIAN: ATTENDING PHYSICIAN:Maria Elena Scott MD Order: [id number] Test Reason : S/P PVI Test Date/Time Stamp: MonAug 15 2023 11:21:24 Blood Pressure : / mmHG Vent. Rate : 069 BPM Atrial Rate : 069 BPM P-R Int : 180 ms QRS Dur : 106 ms QT Int : 480 ms P-R-T Axes : 065 -16 -36 degrees QTc Int : 514 ms Normal sinus rhythm with sinus arrhythmia Inferior infarct , age undetermined T wave abnormality, consider anterolateral ischemia Prolonged QT Abnormal ECG When compared with ECG of 11-AUG-2023 10:56, Significant changes have occurred Confirmed by JUDY DONNELLY MD ([id number]) on 08/15/2023 5:16:51 PM Referred By: Maria Elena Scott Confirmed by:JUDY DONNELLY MD at 1716 PATIENT NAME: BRIDGER RUCKER [facility] 2023-08-11 10:56:00 [id number] [place] [address] PATIENT NAME: BRIDGER RUCKER ADMIT DATE: ACCOUNT NO: [id number] ROOM NO: AGE: 67 REPORT TYPE: eELECTROCARDIOGRAM REPORT SEX: M ADMITTING PHYSICIAN: ATTENDING PHYSICIAN:Maria Elena Scott MD Order: [id number] Test Reason : PREOP Test Date/Time Stamp: MonAug 11 2023 10:56:46 Blood Pressure : / mmHG Vent. Rate : 060 BPM Atrial Rate : 258 BPM P-R Int : 000 ms QRS Dur : 092 ms QT Int : 408 ms P-R-T Axes : 000 014 -32 degrees QTc Int : 408 ms Junctional rhythm Marked ST abnormality, possible inferior subendocardial injury Abnormal ECG No previous ECGs available Confirmed by JUDY DONNELLY MD ([id number]) on 08/11/2023 4:26:59 PM Referred By: Karina Hernandez Confirmed by:JUDY DONNELLY MD at 1626 PATIENT NAME: BRIDGER RUCKER [facility]
[2024-06-29] MEDS ORDERED: NA CHLORIDE 0.9% 1,000 ML ONE (10:45)
[2024-06-29 10:54] LABS: Absolute Eosinophils 0.3 K/uL (0-0.5); Absolute Monocytes 0.8 K/uL (0.1-1.3); Absolute Neutrophil 6.6 K/uL (1.8-8.0); Basophils % 0.4 % (0-1.3); Hematocrit 40.9 % (39.6-49.0); Hemoglobin 13.2 g/dL (13.6-17.9); Lymphocytes % 11.5 % (15.3-44.8); MCH 26.9 pg (27.0-35.0); MCHC 32.2 g/dL (32.0-36.0); MCV 83.7 fL (80-100); MPV 9.3 fL (7.6-11.3); Neutrophils % 75.1 % (41.7-73.7); Platelets 191 thou/uL (152-406); RBC Red Blood Cell Count 4.89 M/uL (4.33-5.43); Red Cell Distribution Width 14.7 % (12.1-15.2)
[2024-06-29 10:57] LABS: PT Prothrombin Time 13.4 SECONDS (9.4-12.5); Protime INR 1.2
[2024-06-29] MEDS ORDERED: ONDANSETRON 4 MG/2 ML VIAL ONE (11:06)
[2024-06-29] MEDS ORDERED: FENTANYL CITR 100 MCG/2 ML ONE ×2 (11:07→13:26)
[2024-06-29] MEDS ORDERED: Ciprofloxacin 200mg IV 400 MG/200 ML IV.SOLN. IV ONE (11:07)
[2024-06-29] MEDS ORDERED: METRONIDAZOLE 500mg IVPB 500 MG/100 ML BAG IV ONE (11:08)
[2024-06-29 11:15] LABS: ALT/SGPT 15 U/L (16-61); AST/SGOT < 10 U/L (15-37); Albumin/Globulin Ratio 0.8 (1.1-1.8); Alkaline Phosphatase 102 U/L (45-117); Anion Gap 8.8 mEq/L (5.0-15.0); BUN Blood Urea Nitrogen 11 mg/dL (7-18); Bicarbonate 27 mEq/L (21-32); Bilirubin Direct 0.3 mg/dL (0-0.2); Bilirubin Indirect, Calculated 0.4 mg/dL (0.2-0.8); Bilirubin Total 0.7 mg/dL (0.2-1.0); Globulin 3.8 g/dL (2.3-3.5); Glomerular Filtration Rate 97 ml/min (=/>90); Glucose Level 172 mg/dL (74-106); Lipase 46 U/L (13-75); Magnesium 2.2 mg/dL (1.6-2.4); NT PRO-BNP 106 pg/mL (<125); Potassium 3.8 mEq/L (3.5-5.1); Protein, Total 6.8 g/dL (6.4-8.2); Sodium Level 142 mEq/L (136-145); Troponin High Sensitivity 7.4 pg/mL (<58.9)
--- NOTE | 2024-06-29 11:36 | RAD REPORT ---
Procedure: Chest Single View HISTORY: Chest pain COMPARISON: January 2024 FINDINGS: The lungs appear clear of acute infiltrate. No significant pleural effusion noted. The heart is moderately enlarged. Post surgical changes chest. IMPRESSION: No acute abnormality is displayed.
--- NOTE | 2024-06-29 12:23 | RAD REPORT ---
EXAMINATION: CT ABDOMEN AND PELVIS WITH CONTRAST CLINICAL INDICATION: Abdominal pain TECHNIQUE: CT abdomen and pelvis was performed, after the administration of 100 cc Isovue-300.. Sagit cooper and coronal reconstructions were obtained. One or more of the following dose reduction techniques were used: Automated exposure control, adjustment of the mA and kV according to patient si ze, and iterative reconstruction. Unless otherwise specified, incidental findings do not require dedicated imaging follow-up. [id number]. Oral contrast was not given which limits evaluation of bowel and appendix. COMPARISON: 2021 FINDINGS: Tiny hepatic cyst. spleen, pancreas, adrenals and kidneys appear unremarkable No evidence of diverticulitis. The appendix is not well seen but appears to extend off of cecum inferiorly. A large amount of strand ing present within the right lower quadrant. No free air. No abscess. Small amount of free fluid Small bilateral hernias containing fat. Prostate gland is mildly imaged. Small umbilical hernia. 2.8 cm lesion is present within the L1 vertebral body : IMPRESSION: Appendicitis 2.8 cm lesion L1 vertebral body may represent an atypical appearing hemangioma. Nonemergent MRI of schuyler mbar spine is recommended for confirmation
--- NOTE | 2024-06-29 12:31 | EDPHYS ---
Physician Documentation [facility] Name: Aung Stallworth Age: 68 yrs Sex: Male : 1955 Arrival Date: 06/29/2024 Time: 10:14 Bed 5 Private MD: ED Physician Nathan Hernandez HPI: 06/29 10:54 This 68 yrs old Male presents to ER via Ambulatory with complaints of martin Abdominal Pain. 10:54 The patient presents with abdominal pain right lower quadrant, in the left lower martin quadrant, abdominal distention in the upper abdomen, in the lower abdomen. Onset: The symptoms/episode began/occurred 3 day(s) ago. The symptoms do not radiate. Associated signs and symptoms: none. The symptoms are described as constant, crampy. Modifying factors: The symptoms are alleviated by nothing, the symptoms are aggravated by movement, pressure. Severity of pain: At its worst the pain was moderate in the emergency department the pain is unchanged. The patient has not experienced similar symptoms in the past. Historical: - Allergies: 10:27 No Known Allergies; iw - PMHx: 10:27 copd; Aortic aneurysm; iw - Immunization history:: Adult Immunizations up to date. - Infectious Disease History:: Denies. - Social history:: Smoking status: . - Family history:: not pertinent. ROS: 10:54 Constitutional: Negative for fever, chills, and weight loss, Eyes: Negative for injury, martin pain, redness, and discharge, ENT: Negative for injury, pain, and discharge, Neck: Negative for injury, pain, and swelling, Cardiovascular: Negative for chest pain, palpitations, and edema, Respiratory: Negative for shortness of breath, cough, wheezing, and pleuritic chest pain, Back: Negative for injury and pain, : Negative for injury, bleeding, discharge, and swelling, MS/Extremity: Negative for injury and deformity, Skin: Negative for injury, rash, and discoloration, Neuro: Negative for headache, weakness, numbness, tingling, and seizure, Psych: Negative for depression, anxiety, suicide ideation, homicidal ideation, and hallucinations, Allergy/Immunology: Negative for hives, rash, and allergies, Endocrine: Negative for neck swelling, polydipsia, polyuria, polyphagia, and marked weight changes, Hematologic/Lymphatic: Negative for swollen nodes, abnormal bleeding, and unusual bruising, 10:54 Abdomen/GI: Positive for abdominal pain, of the right lower quadrant and left lower quadrant, Exam: 10:54 Constitutional: This is a well developed, well nourished patient who is awake, alert, martin and in no acute distress. Head/Face: Normocephalic, atraumatic. Eyes: Pupils equal round and reactive to light, extra-ocular motions intact. Lids and lashes normal. Conjunctiva and sclera are non-icteric and not injected. Cornea within normal limits. Periorbital areas with no swelling, redness, or edema. ENT: Nares patent. No nasal discharge, no septal abnormalities noted. Tympanic membranes are normal and external auditory canals are clear. Oropharynx with no redness, swelling, or masses, exudates, or evidence of obstruction, uvula midline. Mucous membranes moist. Neck: Trachea midline, no thyromegaly or masses palpated, and no cervical lymphadenopathy. Supple, full range of motion without nuchal rigidity, or vertebral point tenderness. No Meningismus. Chest/axilla: Normal chest wall appearance and motion. Nontender with no deformity. No lesions are appreciated. Cardiovascular: Regular rate and rhythm with a normal S1 and S2. No gallops, murmurs, or rubs. Normal PMI, no JVD. No pulse deficits. Respiratory: Lungs have equal breath sounds bilaterally, clear to auscultation and percussion. No rales, rhonchi or wheezes noted. No increased work of breathing, no retractions or nasal flaring. Back: No spinal tenderness. No costovertebral tenderness. Full range of motion. Male : Normal genitalia with no discharge or lesions. Skin: Warm, dry with normal turgor. Normal color with no rashes, no lesions, and no evidence of cellulitis. MS/ Extremity: Pulses equal, no cyanosis. Neurovascular intact. Full, normal range of motion. Neuro: Awake and alert, GCS 15, oriented to person, place, time, and situation. Cranial nerves II-XII grossly intact. Motor strength 5/5 in all extremities. Sensory grossly intact. Cerebellar exam normal. Normal gait. Psych: Awake, alert, with orientation to person, place and time. Behavior, mood, and affect are within normal limits. 10:54 Abdomen/GI: Inspection: distension, that is mild, Bowel sounds: normal, Palpation: moderate abdominal tenderness, in the suprapubic area, right lower quadrant and left lower quadrant, Liver: no appreciated palpable abnormalities, Hernia: not appreciated, 10:54 : CVA tenderness, is absent, Male external genitalia: normal, Bladder: is normal, 13:23 ECG was reviewed by the Attending Physician. [facility] Vital Signs: 10:26 BP 136 / 90; Pulse 89; Resp 16; Temp 98.4; Pulse Ox 98% on R/A; iw 12:10 BP 136 / 81; Pulse 77; Resp 17; Pulse Ox 95% on R/A; ap3 MDM: 10:19 Medical Screening Exam initiated martin 10:58 Differential diagnosis: diverticulitis, non-specific abd pain, pancreatitis, martin Prostatitis, Ureterolithiasis. Data reviewed: vital signs, nurses notes, lab test result(s), EKG, radiologic studies, CT scan, plain films. Consideration of Admission/Observation Escalation of care including admission/observation considered. I considered the following discharge prescriptions or medication management in the emergency department Medications were administered in the Emergency Department. See MAR. Independent interpretation of the following test(s) in the Emergency Department EKG: See my EKG interpretation above CT Scan: My interpretation is CT A/P. Care significantly affected by the following chronic conditions: Chronic Obstructive Pulmonary Disease, Obesity, CABG, AORTIC ANEURYSM. 06/29 10:22 Order name: Basic Metabolic Panel; Complete Time: 11:41 [facility] 06/29 10:22 Order name: CBC with Diff; Complete Time: 11:11 [facility] 06/29 10:22 Order name: LFT's; Complete Time: 11:41 [facility] 06/29 10:22 Order name: Magnesium; Complete Time: 11:41 [facility] 06/29 10:22 Order name: NT PRO-BNP; Complete Time: 11:41 [facility] 06/29 10:22 Order name: PT-INR; Complete Time: 11:11 [facility] 06/29 10:22 Order name: Troponin HS; Complete Time: 11:41 [facility] 06/29 10:22 Order name: Lipase; Complete Time: 11:41 [facility] 06/29 10:22 Order name: Urinalysis w/ reflexes [facility] 06/29 13:26 Order name: CBC with Automated Diff [facility] 06/29 13:26 Order name: CBC with Automated Diff [facility] 06/29 13:26 Order name: Comprehensive Metabolic Panel [facility] 06/29 13:26 Order name: Comprehensive Metabolic Panel [facility] 06/29 13:26 Order name: Lipid Profile [facility] 06/29 13:26 Order name: Lipid Profile [facility] 06/29 13:26 Order name: Protime (+INR) [facility] 06/29 13:26 Order name: Protime (+INR) [facility] 06/29 13:26 Order name: PTT, Activated Partial Thromb [facility] 06/29 13:26 Order name: PTT, Activated Partial Thromb [facility] 06/29 13:26 Order name: Troponin High Sensitivity [facility] 06/29 13:26 Order name: Troponin High Sensitivity [facility] 06/29 13:26 Order name: Troponin High Sensitivity [facility] 06/29 10:22 Order name: XRAY Chest (1 view); Complete Time: 11:41 [facility] 06/29 10:22 Order name: CT Abd/Pelvis - IV Contrast Only; Complete Time: 12:24 [facility] 06/29 10:22 Order name: EKG; Complete Time: 10:23 [facility] 06/29 13:26 Order name: CONS Physician Consult [facility] 06/29 13:26 Order name: CONS Physician Consult [facility] 06/29 10:22 Order name: Cardiac monitoring; Complete Time: 11:35 [facility] 06/29 10:22 Order name: EKG - Nurse/Tech; Complete Time: 11:20 [facility] 06/29 10:22 Order name: IV Saline Lock; Complete Time: 10:49 [facility] 06/29 10:22 Order name: Labs collected and sent; Complete Time: 10:49 [facility] 06/29 10:22 Order name: O2 Per Protocol; Complete Time: 10:49 [facility] 06/29 10:22 Order name: O2 Sat Monitoring; Complete Time: 10:49 [facility] EC:23 Rate is 79 beats/min. Rhythm is regular. QRS [place] is Normal. IN interval is normal. QRS martin interval is normal. QT interval is normal. No Q waves. T waves are Normal. No ST changes noted. Clinical impression: Normal ECG and No evidence of ischemia. Interpreted by me. Reviewed by me. Administered Medications: 10:49 Drug: NS 0.9% IV 1000 ml IV at 1000 ml once; to be given as a bolus over 60 minutes ap3 Route: IV; Rate: 1000 ml; Site: right antecubital; 12:15 Follow up: IV Status: Completed infusion; IV Intake: 1000ml aa5 11:25 Drug: fentaNYL (PF) IVP 50 mcg IVP once Route: IVP; Site: right antecubital; aa5 11:30 Follow up: Response: No adverse reaction aa5 11:25 Drug: Ondansetron IVP 4 mg IVP once; over 2 minutes Route: IVP; Site: right antecubital;aa5 11:30 Follow up: Response: No adverse reaction aa5 11:28 Drug: metroNIDAZOLE IVPB 500 mg 100 ml IVPB at 200 ml/hr once over 30 mins Volume: 100 aa5 ml; Route: IVPB; Rate: 200 ml/hr; Infused Over: 30 mins; Site: right antecubital; 12:00 Follow up: Response: No adverse reaction; IV Status: Completed infusion aa5 12:15 Drug: Ciprofloxacin IVPB 400 mg 200 ml IVPB once over 60 mins Volume: 200 ml; Route: aa5 IVPB; Infused Over: 60 mins; Site: right antecubital; 13:02 Follow up: Response: No adverse reaction; IV Status: Completed infusion aa5 13:02 Drug: Piperacillin-Tazobactam IVPB 3.375 grams IVPB once over 60 mins; (mix in NS 100 aa5 mL) Route: IVPB; Infused Over: 60 mins; Site: right antecubital; 13:19 Follow up: Response: No adverse reaction aa5 13:20 Follow up: IV Status: Infusion continued upon admission aa5 Disposition Summary: 06/29/24 12:30 Hospitalization Ordered Notes: Hospitalization Status: Observation martin Provider: Kayy Hinojosa cha [facility] martin Condition: Stable martin Problem: new martin Symptoms: have improved martin Bed/Room Type: Standard martin Room Assignment: martin Diagnosis - Abdominal tenderness martin - Acute appendicitis with localized peritonitis martin Forms: - Medication Reconciliation Form martin - SBAR form martin - Leadership Thank You Letter martin Signatures: Dispatcher [employer] Nathan Jensen MD MD cha Williams, Irene RN JOHNIE iw Zoë Heller RN RN aa5 Missy Cantu RN RN ap3 Corrections: (The following items were deleted from the chart) 10:23 10:23 BASIC METABOLIC PANEL+C.LAB.BRZ ordered. EDMS EDMS 10:23 10:23 CBC+H.LAB.BRZ ordered. EDMS EDMS 10:23 10:23 HEPATIC FUNCTION+C.LAB.BRZ ordered. EDMS EDMS 10:23 10:23 MAGNESIUM+C.LAB.BRZ ordered. EDMS EDMS 10:23 10:23 PROBNP+C.LAB.BRZ ordered. EDMS EDMS 10:23 10:23 PROTIME (+INR)+COAG.LAB.BRZ ordered. EDMS EDMS 10:23 10:23 Troponin High Sensitivity+C.LAB.BRZ ordered. EDMS EDMS 10:23 10:23 LIPASE+C.LAB.BRZ ordered. EDMS EDMS 10:23 10:23 Urinalysis+U.LAB.BRZ ordered. 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
--- NOTE | 2024-06-29 12:31 | ER ---
Nurse's Notes [facility] Name: Aung Stallworth Age: 68 yrs Sex: Male : 1955 Arrival Date: 06/29/2024 Time: 10:14 Bed 5 Private MD: Diagnosis: Abdominal tenderness;Acute appendicitis with localized peritonitis Presentation: 06/29 10:26 Chief complaint: Patient states: i think i might have aggravated my hernia, having iw lower abd pain, I see the hernia bulge when I strain , Monday I was cutting into a big tree with a chain saw and that's when the pain started. Coronavirus screen: At this time, the client does not indicate any symptoms associated with coronavirus-19. Ebola Screen: No symptoms or risks identified at this time. Initial Sepsis Screen: Does the patient meet any 2 criteria? No. Patient's initial sepsis screen is negative. Does the patient have a suspected source of infection? No. Patient's initial sepsis screen is negative. Risk Assessment: Do you want to hurt yourself or someone else? Patient reports no desire to harm self or others. Onset of symptoms was June 26, 2024. 10:26 Method Of Arrival: Ambulatory iw 10:26 Acuity: MARIA ELENA 3 iw Historical: - Allergies: 10:27 No Known Allergies; iw - PMHx: 10:27 copd; Aortic aneurysm; iw - Immunization history:: Adult Immunizations up to date. - Infectious Disease History:: Denies. - Social history:: Smoking status: . - Family history:: not pertinent. Screenin:50 [facility] ED Fall Risk Assessment (Adult) History of falling in the last 3 months, ap3 including since admission No falls in past 3 months (0 pts) Confusion or Disorientation No (0 pts) Intoxicated or Sedated No (0 pts) Impaired Gait No (0 pts) Mobility Assist Device Used No (0 pt) Altered Elimination No (0 pt) Score/Fall Risk Level 0 - 2 = Low Risk Oriented to surroundings, Maintained a safe environment, Educated pt \T\ family on fall prevention, incl call for assistance when getting out of bed, Assessed \T\ reinforced patient's understanding of fall precautions, Hourly rounding (assess needs \T\ fall precautionary measures) done, Used ambulatory aids as needed (educated on \T\ assisted with), Used gait belt as appropriate. Abuse screen: Denies threats or abuse. Nutritional screening: No deficits noted. Tuberculosis screening: No symptoms or risk factors identified. Assessment: 10:30 General: Appears in no apparent distress. Behavior is calm, cooperative, appropriate aa5 for age. Pain: Complains of pain in abdomen Pain currently is 4 out of 10 on a pain scale. at worst was 7 out of 10 on a pain scale. Pain began 06/26/24. Neuro: Level of Consciousness is awake, alert, obeys commands, Oriented to person, place, time, situation. Cardiovascular: Patient's skin is warm and dry. Respiratory: Airway is patent Respiratory effort is even, unlabored, Respiratory pattern is regular, symmetrical. 10:30 GI: Abdomen is round non-distended, Bowel sounds present X 4 quads. Abd is soft X 4 aa5 quads Reports lower abdominal pain, upper abdominal pain. : No signs and/or symptoms were reported regarding the genitourinary system. EENT: No signs and/or symptoms were reported regarding the EENT system. Derm: Skin is pink, warm \T\ dry. Musculoskeletal: Range of motion: intact in all extremities. 10:49 Reassessment: Patient is alert, oriented x 3, equal unlabored respirations, skin aa5 warm/dry/pink. 11:25 Reassessment: Patient is alert, oriented x 3, equal unlabored respirations, skin aa5 warm/dry/pink. 12:15 Reassessment: Patient is alert, oriented x 3, equal unlabored respirations, skin aa5 warm/dry/pink. 13:02 Reassessment: Patient is alert, oriented x 3, equal unlabored respirations, skin aa5 warm/dry/pink. Vital Signs: 10:26 BP 136 / 90; Pulse 89; Resp 16; Temp 98.4; Pulse Ox 98% on R/A; iw 12:10 BP 136 / 81; Pulse 77; Resp 17; Pulse Ox 95% on R/A; ap3 ED Course: 10:17 Patient arrived in ED. mr 10:18 Nathan Hernandez MD is Attending Physician. martin 10:27 Triage completed. iw 10:29 Arm band placed on. iw 10:41 Zoë Heller, RN is Primary Nurse. aa5 10:49 Initial lab(s) drawn, by me, sent to lab. Inserted saline lock: 20 gauge in right ap3 antecubital area, using aseptic technique. Blood collected. Flushed with 10 mL NS. 10:50 Patient has correct armband on for positive identification. Placed in gown. Bed in low ap3 position. Call light in reach. Side rails up X 1. Adult w/ patient. Provided Education on: fall risk. Client placed on continuous cardiac and pulse oximetry monitoring. NIBP monitoring applied. monitoring manager on. Pulse ox on. NIBP on. 10:55 XRAY Chest (1 view) In Process Unspecified. EDMS 11:20 EKG done, by ED staff, reviewed by Nathan Hernandez MD. em1 11:52 CT Abd/Pelvis - IV Contrast Only In Process Unspecified. EDMS 12:29 Kayy Hinojosa MD is Hospitalizing Provider. [facility] 13:20 No provider procedures requiring assistance completed. Patient admitted, IV remains in aa5 place. Administered Medications: 10:49 Drug: NS 0.9% IV 1000 ml IV at 1000 ml once; to be given as a bolus over 60 minutes ap3 Route: IV; Rate: 1000 ml; Site: right antecubital; 12:15 Follow up: IV Status: Completed infusion; IV Intake: 1000ml aa5 11:25 Drug: fentaNYL (PF) IVP 50 mcg IVP once Route: IVP; Site: right antecubital; aa5 11:30 Follow up: Response: No adverse reaction aa5 11:25 Drug: Ondansetron IVP 4 mg IVP once; over 2 minutes Route: IVP; Site: right antecubital;aa5 11:30 Follow up: Response: No adverse reaction aa5 11:28 Drug: metroNIDAZOLE IVPB 500 mg 100 ml IVPB at 200 ml/hr once over 30 mins Volume: 100 aa5 ml; Route: IVPB; Rate: 200 ml/hr; Infused Over: 30 mins; Site: right antecubital; 12:00 Follow up: Response: No adverse reaction; IV Status: Completed infusion aa5 12:15 Drug: Ciprofloxacin IVPB 400 mg 200 ml IVPB once over 60 mins Volume: 200 ml; Route: aa5 IVPB; Infused Over: 60 mins; Site: right antecubital; 13:02 Follow up: Response: No adverse reaction; IV Status: Completed infusion aa5 13:02 Drug: Piperacillin-Tazobactam IVPB 3.375 grams IVPB once over 60 mins; (mix in NS 100 aa5 mL) Route: IVPB; Infused Over: 60 mins; Site: right antecubital; 13:19 Follow up: Response: No adverse reaction aa5 13:20 Follow up: IV Status: Infusion continued upon admission aa5 Medication: 10:50 VIS not applicable for this client. ap3 Intake: 12:15 IV: 1000ml; Total: 1000ml. aa5 Outcome: 12:30 Decision to Hospitalize by Provider. martin 13:19 Admitted to OR accompanied by nurse, via wheelchair, with chart, aa5 13:19 Condition: stable 13:19 Instructed on the need for admit, Demonstrated understanding of instructions, 13:20 Patient left the ED. 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 aa5 aa5 14:23 10:49 General: Appears in no apparent distress. Behavior is calm, cooperative, aa5 appropriate for age, ap3 14:23 10:49 Pain: Complains of pain in abdomen Pain currently is 4 out of 10 on a pain scale. aa5 at worst was 7 out of 10 on a pain scale. Pain began 06/26/24 ap3 14:23 10:49 Neuro: Level of Consciousness is awake, alert, obeys commands, Oriented to aa5 person, place, time, situation, ap3 14:23 10:49 Cardiovascular: Patient's skin is warm and dry. ap3 aa5 14:23 10:49 Respiratory: Airway is patent Respiratory effort is even, unlabored, Respiratory aa5 pattern is regular, symmetrical, ap3 14:23 10:49 GI: Abdomen is non-distended, Reports lower abdominal pain, upper abdominal pain, aa5 ap3
[2024-06-29] MEDS ORDERED: NA CHLORIDE 0.9% 100 ML ONE (12:42)
[2024-06-29] MEDS ORDERED: PIPERACIL/TAZO 3.375 GM VIAL IV ONE (12:43)
[2024-06-29] MEDS ORDERED: ONDANSETRON 4 MG/2 ML VIAL IV PRN (13:20)
[2024-06-29] MEDS ORDERED: ACETAMINOPHEN 500 MG TAB PO PRN (13:20)
[2024-06-29] MEDS ORDERED: HYDRALAZINE HCL 20 MG/ML VIAL IV PRN (13:25)
[2024-06-29] MEDS ORDERED: MIDAZOLAM HCL 2 MG/2 ML INJ ONE (13:26)
[2024-06-29] MEDS ORDERED: KETOROLAC 30 MG/ML INJ ONE (13:26)
[2024-06-29] MEDS ORDERED: ROCURONIUM 50 MG/5 ML VIAL IV ONE (13:26)
[2024-06-29] MEDS ORDERED: propofoL 200 MG/20 ML VIAL IV ONE (13:26)
[2024-06-29] MEDS ORDERED: LIDOCAINE 1% MPF 5 ML VIAL ONE (13:27)
[2024-06-29] MEDS ORDERED: dexAMETHasone 4 MG/ML VIAL ONE (13:27)
[2024-06-29] MEDS: Ringers Lactate 0 ML IV ONE (13:36)
[2024-06-29] MEDS: NA CHLORIDE 0.9% 1,000 ML ONE (13:40)
[2024-06-29] MEDS: SUGAMMADEX SODIUM 200 MG/2 ML VIAL IV ONE (13:49)
[2024-06-29] MEDS: NA CIT/CITRIC AC 30 ML ORAL UDC ONE (13:55)
--- NOTE | 2024-06-29 15:34 | P.BOP ---
Preoperative diagnosis: Acute appendicitis, peritonitis, umbilical hernia Postoperative diagnosis: same Primary procedure: 1. Laparoscopic appendectomy Secondary procedure: 2. Umbilical hernia repair Estimated blood loss: <10cc Specimen: hernia sac, suppurative appendix Findings: suppurative appendicitis, hernia Anesthesia: General Complications: None Drain(s): JANUARY drain Transferred to: Recovery Room Condition: Good
--- NOTE | 2024-06-29 15:39 | CON ---
Date of Consultation: 06/29/2024 History Of Present Illness: Mr. Stallworth is a 68-year-old patient who comes to us with lower abdominal pain for about 3 days, associated with nausea, vomiting, crampy. 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 He thought it was related to muscle cramps and then did not get better, so today decided to c ome to the ER. Diagnosed with appendicitis with periappendiceal inflammation. Allergies: NONE. Past Medical History: He has COPD. He has heart disease. He has history of aortic aneurysm and who says he has been followed by Dr. Lopez conservatively. Past Surgical History: Include heart surgery, although he is not on any anticoagulation other than a spirin. He says he has a colonoscopy, but was almost 10 years ago. Review of Systems: Denies any shortness of breath, any chest pain, any fever, any melena, any hematochezia. Denies any recent traveling out of the country. Denies any family member sick at home. Social History: He does not smoke. He does not drink alcohol. Family History: Noncontributory. Physical Examination: Vital Signs: Reviewed General: The patient is awake, alert, complaining of right lower quadrant pain. Pupils are equal an d reactive. Anicteric. Neck: Supple. Chest: Clear. Abdomen: Right lower quadrant tenderness with guarding and rebound. Psoas signs positive. Breasts: Deferred. Genitalia: Deferred. Rectal: Deferred. Extremities: Good capillary refill. Laboratory Data: Blood work shows a WBC count of 8.7, hemoglobin of 13.2, platelets of 191. INR is 1.2, potassium 3.8, creatinine is 0.79, total bilirubin of 0.7. CAT scan of the abdomen and pelvis i nterpreted by Dr. Drummond as umbilical hernia. Apparently, patient also have bilateral inguinal her nias, mild proximal enlargement 2.8 cm in the L1 vertebral lesion. The appendix is with lot of infla mmation and stranding in the right area. Looked like it is coming inferiorly from the cecum, as per Dr. Drummond. The patient fully explained the importance of following up hernias in the future. Als o following up with his Urology and primary doctor for his vertebral body lesion. Impression: Appendicitis with a L1 possible hemangioma. He was advised to discuss that with the [facility] doctor. In the meantime, we are going to go for emergent laparoscopic, possible open appendecto my with benefits, alternatives, and risks, which include, but not limited to infection, bleeding, dam age to adjacent structures, anesthesia complication, abscess, UT and even . He also understands this may not relieve his symptoms. He might need more than one surgical intervention. If we find h e has purulent appendix or ruptured appendix, he may need long-term antibiotics with the risks of abs cess. JOSE/MODJaclyn Voice ID: [id number] Report ID: [id number]
--- NOTE | 2024-06-29 16:30 | OP ---
Date of Procedure: 06/29/2024 Surgeon: Noel Albarran MD Preoperative Diagnoses: Acute appendicitis, umbilical hernia, bilateral inguinal hernias, aortic ane urysm. Postoperative Diagnoses: Acute appendicitis, umbilical hernia, bilateral inguinal hernias, aortic an eurysm plus suppurative appendicitis. Procedures: Laparoscopic appendectomy and umbilical hernia repair. Anesthesia: General plus local. Drains: JANUARY is #10. Ebl: Less than 10 cc. Specimen: Appendix. Findings: Patient has suppurative appendix, mild pus around the area of the appendix. It was able t o be irrigated. The appendix is partially retrocecal. So the second half to be mobilized partially to be able to get to the base of the appendix that was done with the help of LigaSure. Complications: None. Indications: This is a case of a 68-year-old patient with more than 3 days history of abdominal pain . He thought it was cramps from doing lifting, but found to have appendicitis. The patient was admi tted to the hospital. Scheduled emergently in the OR for laparoscopic possible open appendectomy wit h benefits, alternatives, and risks including, but not limited to infection, bleeding, damage to miriam cent structures, anesthesia complication, recurrence, VT, and even . He also understands this m ay not relieve any symptoms. He might need more than one surgical intervention. We also found on CAT scan umbilical hernia and bilateral inguinal hernias. He understand we might be doing an umbil ical hernia at this moment since we are going to use that access to get the appendix out. Bilateral inguinal hernias, we discussed pros and cons and discussed that as an outpatient too. He also was ex plained the importance of colonoscopies after this in the next few weeks. He understood, signed a co nsent. Description Of Procedure: The patient was brought to the operating room, placed in supine position. Anesthesia was done without complication. A time-out was called. Abdomen was prepped and draped in the usual sterile fashion. Local anesthetic was applied in the periumbilical region. Incision was carried down to fascia. We noticed the patient to have umbilical hernia so we included that opening and our opening for the Lisandro trocar. Hernia sac was removed. Vicryl #1 placed inside the fascia. Lisandro trocar was carefully introduced. No bleeding was obtained. I placed 2 more trocars, 5 mm ea ch one of them, 1 in the suprapubic area and another 1 in the left lower quadrant. Using the same te chnique which consisted of local anesthetic, sharp incision of the skin and introduction of the troca rs under direct vision. We visualized the area of the right lower quadrant. We noticed a suppurativ e appendicitis. Profuse irrigation was done in that area to be able to visualize the area better. W e noticed the appendix to be partially retrocecal, so we have to mobilize the cecum with the help of LigaSure, making sure we protect the ureters and their blood vessels all time. This allowed me to id entify the base of the appendix. It seemed to be spared from the inflammation, so we transected that with the Endo-DORY 45 mm nonvascular. The mesoappendix was transected with the help of LigaSure. Ap pendix removed from abdominal cavity using an EndoCatch through the umbilical incision. Profuse irri gation was done and suction. No bleeding. We left a JANUARY drain in that region exiting through 1 of e trocar site and securing that in place with 3-0 nylon. The area was inspected once again. No jeny l leak. No bleeding. At that moment, I proceeded to remove the trocars under direct vision, deflate d pneumoperitoneum, closed the fascia with #1 Vicryl and also the umbilical hernia with #1 Vicryl. I rrigated subcutaneous tissue, closed with 3-0 chromic and skin with zari. Sponge count and instrument counts correct. The patient is on his way to Recovery in stable conditio nBear GARCIA/JED Voice ID: [id number] Report ID: [id number]
[2024-06-29 16:58] VITALS: BMI 29.5
[2024-06-29] MEDS: NA CHLORIDE 0.9% 1,000 ML IV SCH (20:44)
--- NOTE | 2024-06-29 20:56 | P.PN ---
Date of Service: 06/30/24 subjective Status post laparoscopic appendectomy Review of Systems 10-point ROS is otherwise unremarkable unless listed HPI Physical Examination - Vital Signs reivewed - Physical Exam General: Alert, In no apparent distress, Oriented x3, HEENT: Atraumatic, Normocephalic Neck: Supple Respiratory: Clear to auscultation bilaterally, Normal air movement Cardiovascular: Normal pulses, Regular rate/rhythm, Normal S1 S2 Capillary refill: <2 Seconds Gastrointestinal: Normal bowel sounds, lower abdominal tenderness Musculoskeletal: No clubbing, No swelling Integumentary: No rashes Neurological: Normal speech, Normal strength at 5/5 x4 extr, Cranial nerves 3-12 intact, Lymphatics: No axilla or inguinal lymphadenopathy - Assessment and Plan - Plan Abdominal tenderness Acute appendicitis with localized peritonitis Hernia Surgery to consult, Dr Lopez, gave CC, prn analgesics, IV antibiotics 06/30 Laparoscopic appendectomy and umbilical hernia repair Dr. Albarran Will discharge with a JANUARY drain, follow-up with surgery after discharge, call office for appointment, no lifting greater than 10 lbs copd stable prn nebs, Aortic aneurysm Cardiac clearance with Dr Lopez, GI/DVT prophylaxis Advanced directive full code Discharge Plan: Home Plan to discharge in: 48 Hours - Advance Directives Does patient have a Living Will: No Does patient have a Durable POA for Healthcare: No - Code Status/Comfort Care Code Status: Full Code Time Spent Managing Pts Care (In Minutes): 35 <Roxana Renae - Last Filed: 06/30/24 07:58> Patient was seen and examined. Events of the last 24 hours have been noted. Spoke with with TONY regarding patient's clinical picture after evaluating and examining the patient independently. I performed a substantial part of the MDM during this patient's care today. I personally made or approved the documented management plan and acknowledge its risk of complications. I agree with the findings and documentation provided in the TONY's notes. Patient is doing well clinically. Pain is better controlled. Ambulating really well with his . Plan to discharge on oral antibiotics. Anticipate JANUARY drain will be removed tomorrow prior to discharge. <Kayy Hinojosa - Last Filed: 06/30/24 17:05>
[2024-06-30] MEDS: MELATONIN 5 MG TABLET PO PRN (00:15)
--- NOTE | 2024-06-30 01:21 | P.HP ---
Certification for Inpatient Patient admitted to: Inpatient With expected LOS: >2 Midnights Patient will require the following post-hospital care: None Practitioner: I am a practitioner with admitting privileges, knowledge of patient current condition, hospital course, and medical plan of care. Services: Services provided to patient in accordance with Admission requirements found in Title 42 Section 412.3 of the Code of Federal Regulations Patient History Date of Service: 06/29/24 Reason for admission: Acute complicated appendicitis History of Present Illness: patient is a 60-year-old gentleman who came to the hospital with abdominal pain. Patient had workup in the ER and findings revealed an acute appendicitis. Patient was taken to the operating room. Patient had a 5.1 abdominal aortic aneurysm. Patient was taken to the OR by General surgery. In the OR patient was found to have a complicated appendicitis was placed and IV antibiotics be continued. Patient will most likely have a prolonged hospital stay because of the complicated appendicitis. Patient also with multiple comorbidities including the AAA and will need to monitor his hemodynamics closely while in the hospital setting. At this time, patient will be admitted for inpatient hospitalization. Allergies No Known Allergies Allergy (Unverified 06/29/24 13:31) Home Medications: Apixaban [Eliquis] 5 mg PO BID 06/29/24 Aspirin [Aspirin EC 81 MG] 81 mg PO DAILY 06/29/24 Atorvastatin Calcium [Lipitor] 40 mg PO BEDTIME 06/29/24 Metformin ER [Glucophage ER] 1,000 mg PO BREAKFAST 06/29/24 Metformin ER [Glucophage ER] 500 mg PO DAILY AT SUPPER 06/29/24 Metoprolol Tartrate 100 mg PO BID 06/29/24 - Past Medical/Surgical History Has patient received pneumonia vaccine in the past: Yes Diabetic: Yes -: afib -: AAA -: COPD -: hyperlipidemia -: hypertension -: diabetes -: AFIB ablations -: Valve replacement - Family History Father Family History: Reviewed- Non-Contributory - Social History Smoking Status: Never smoker Alcohol use: No CD- Drugs: No Caffeine use: No Place of Residence: Home Review of Systems 10-point ROS is otherwise unremarkable Physical Examination - Vital Signs Temperature: 97 F Blood Pressure: 136/85 Pulse: 85 Respirations: 18 Pulse Ox (%): 94 - Physical Exam General: Alert, In no apparent distress, Oriented x3 HEENT: Atraumatic, PERRLA, Mucous membr. moist/pink, EOMI, Sclerae nonicteric Neck: Supple, 2+ carotid pulse no bruit, No LAD, Without JVD or thyroid abnormality Respiratory: Clear to auscultation bilaterally, Normal air movement Cardiovascular: Regular rate/rhythm, Normal S1 S2, No murmurs Gastrointestinal: Normal bowel sounds, Soft and benign, Non-distended, No rebound, No guarding, Tenderness Musculoskeletal: No clubbing, No swelling, No tenderness Integumentary: No rashes Neurological: Normal gait, Normal speech, Normal strength at 5/5 x4 extr, Normal tone, Sensation intact, Cranial nerves 3-12 intact Lymphatics: No axilla or inguinal lymphadenopathy - Studies Laboratory Data (last 24 hrs) 06/29/24 06/29/24 06/29/24 10:46 10:46 10:46 WBC 8.70 Hgb 13.2 L Hct 40.9 Plt Count 191 PT 13.4 H INR 1.20 Sodium 142 Potassium 3.8 BUN 11 Creatinine 0.79 Glucose 172 H Magnesium 2.2 Total Bilirubin 0.7 AST < 10 L ALT 15 L Alkaline Phosphatase 102 Lipase 46 Assessment & Plan - Problems (Diagnosis) (1) Acute appendicitis with localized peritonitis Current Visit: Yes Status: Acute (2) AAA (abdominal aortic aneurysm) without rupture Current Visit: Yes Status: Acute (3) COPD (chronic obstructive pulmonary disease) Current Visit: Yes Status: Acute (4) Hypertension Current Visit: Yes Status: Acute (5) Type 2 diabetes mellitus Current Visit: Yes Status: Acute (6) Hyperlipidemia Current Visit: Yes Status: Acute - Plan -aggressive IV hydration -IV antibiotics -pain control -surgery consultation appreciated -plan to monitor hemodynamics closely Discharge Plan: Home Plan to discharge in: Greater than 2 days - Advance Directives Does patient have a Living Will: No Does patient have a Durable POA for Healthcare: No - Code Status/Comfort Care Code Status Assessed: Yes Code Status: Full Code Critical Care: No Time Spent Managing PTS Care (In Minutes): 45
[2024-06-30 06:13] LABS: Absolute Eosinophils 0.1 K/uL (0-0.5); Absolute Lymphocytes (CBC) 1.1 K/uL (0.7-4.9); Absolute Monocytes 0.9 K/uL (0.1-1.3); Absolute Neutrophil 12.5 K/uL (1.8-8.0); Basophils % 0.2 % (0-1.3); Eosinophils % 0.5 % (0-4.4); Hematocrit 36.8 % (39.6-49.0); Hemoglobin 11.7 g/dL (13.6-17.9); Lymphocytes % 7.6 % (15.3-44.8); MCH 26.4 pg (27.0-35.0); MCHC 31.7 g/dL (32.0-36.0); MCV 83.2 fL (80-100); MPV 9.2 fL (7.6-11.3); Neutrophils % 85.7 % (41.7-73.7); Nucleated Red Blood Cells % 0.1 % (0-0); Platelets 188 thou/uL (152-406); RBC Red Blood Cell Count 4.43 M/uL (4.33-5.43); Red Cell Distribution Width 14.5 % (12.1-15.2)
[2024-06-30 06:15] LABS: PT Prothrombin Time 13.4 SECONDS (9.4-12.5); PTT, Activated Partial Thromb 28.4 SECONDS (24.3-36.9); Protime INR 1.2
[2024-06-30 06:32] LABS: Albumin 2.6 g/dL (3.4-5.0); Albumin/Globulin Ratio 0.7 (1.1-1.8); Anion Gap 8.8 mEq/L (5.0-15.0); Bilirubin Total 0.6 mg/dL (0.2-1.0); Globulin 3.5 g/dL (2.3-3.5); Potassium 3.8 mEq/L (3.5-5.1); Protein, Total 6.1 g/dL (6.4-8.2); Troponin High Sensitivity 6.5 pg/mL (<58.9)
[2024-06-30 07:29] LABS: Differential Total Cells Count 100; Segmented Neutrophils 88 % (40-80)
[2024-06-30 07:30] LABS: Blood Morphology Comment NOT SEEN (NOT SEEN); Lymphocytes 7 % (15-42); Monocytes 5 % (0-10); Platelet Estimate ADEQ
--- NOTE | 2024-06-30 07:57 | P.DS ---
Admission Date: 06/29/24 Discharge Date: 06/30/24 Disposition: ROUTINE DISCHARGE Discharge Condition: GOOD Reason for Admission: Acute complicated appendicitis Brief History of Present Illness: patient is a 60-year-old gentleman who came to the hospital with abdominal pain. Patient had workup in the ER and findings revealed an acute appendicitis. Patient was taken to the operating room. Patient had a 5.1 abdominal aortic aneurysm. Patient was taken to the OR by General surgery. In the OR patient was found to have a complicated appendicitis was placed and IV antibiotics be continued. Patient will most likely have a prolonged hospital stay because of the complicated appendicitis. Patient also with multiple comorbidities including the AAA and will need to monitor his hemodynamics closely while in the hospital setting. At this time, patient will be admitted for inpatient hospitalization. - Physical Exam General: Alert, In no apparent distress, Oriented x3 HEENT: Atraumatic, PERRLA, Mucous membr. moist/pink, EOMI, Sclerae nonicteric Neck: Supple, 2+ carotid pulse no bruit, No LAD, Without JVD or thyroid abnormality Respiratory: Clear to auscultation bilaterally, Normal air movement Cardiovascular: Regular rate/rhythm, Normal S1 S2, No murmurs Gastrointestinal: Normal bowel sounds, Soft and benign, Non-distended, No rebound, No guarding, Tenderness Musculoskeletal: No clubbing, No swelling, No tenderness Integumentary: No rashes Neurological: Normal gait, Normal speech, Normal strength at 5/5 x4 extr, Normal tone, Sensation intact, Hospital Course: 60-year-old gentleman who came to the hospital with abdominal pain. Patient had workup in the ER and findings revealed an acute appendicitis. Patient was taken to the operating room. Patient had a 5.1 abdominal aortic aneurysm. Patient was taken to the OR by General surgery. In the OR patient was found to have a complicated appendicitis was placed and IV antibiotics be continued. Status post 06/30 Laparoscopic appendectomy and umbilical hernia repair Dr. Albarran. Will discharge with a JANUARY drain, follow-up with surgery after discharge, call office for appointment, no lifting greater than 10 lbs, follow-up with cardiology after for abdominal aneurysm Assessment Abdominal pain Appendicitis status code laparoscopic cholecystectomy follow-up with Dr. Albarran after discharge Hernia with hernia repair Abdominal with Dr. Lopez after discharge Status post 06/30 Laparoscopic appendectomy and umbilical hernia repair Dr. Albarran. Will discharge with a JANUARY drain, follow-up with surgery after discharge, call office for appointment, no lifting greater than 10 lbs, follow- up with cardiology after for abdominal aneurysm Continue home medicines as previously prescribed GOAL: Clear understanding of disease process INSTRUCTIONS: Physician Discharge Instructions: -Follow-up with Dr. Lopez after discharge for aneurysm -Follow-up with Dr. Albarran after discharge for status post appendectomy -Follow-up with PCP in 1 to 2 weeks -Please call Dr. Hinojosa at [phone] if any questions regarding hospital stay -Please call nursing station at [phone] if any nursing or medication questions -Return to the emergency room if symptoms worsen Diet: ADA, low sodium Activity: Fall precautions Vital Signs/Physical Exam: Temp Pulse Resp BP Pulse Ox 97 F 79 16 135/86 95 06/30/24 04:00 06/30/24 04:00 06/30/24 04:00 06/30/24 04:00 06/30/24 04:00 Laboratory Data at Discharge: WBC 14.60 thou/uL (4.3-10.9) H 06/30/24 05:59 Hgb 11.7 g/dL (13.6-17.9) L D 06/30/24 05:59 Hct 36.8 % (39.6-49.0) L 06/30/24 05:59 Plt Count 188 thou/uL (152-406) 06/30/24 05:59 PT 13.4 SECONDS (9.4-12.5) H 06/30/24 05:59 INR 1.20 06/30/24 05:59 APTT 28.4 SECONDS (24.3-36.9) 06/30/24 05:59 Sodium 143 mEq/L (136-145) 06/30/24 05:39 Potassium 3.8 mEq/L (3.5-5.1) 06/30/24 05:39 BUN 8 mg/dL (7-18) 06/30/24 05:39 Creatinine 0.62 mg/dL (0.70-1.30) L 06/30/24 05:39 Glucose 112 mg/dL (74-106) H 06/30/24 05:39 Magnesium 2.2 mg/dL (1.6-2.4) 06/29/24 10:46 Total Bilirubin 0.6 mg/dL (0.2-1.0) 06/30/24 05:39 AST 12 U/L (15-37) L 06/30/24 05:39 ALT 16 U/L (16-61) 06/30/24 05:39 Alkaline Phosphatase 91 U/L (45-117) 06/30/24 05:39 Triglycerides 55 mg/dL (<150) 06/30/24 05:39 Cholesterol 79 mg/dL (<200) 06/30/24 05:39 HDL Cholesterol 40 mg/dL (40-60) 06/30/24 05:39 Cholesterol/HDL Ratio 1.98 06/30/24 05:39 Lipase 46 U/L (13-75) 06/29/24 10:46 Home Medications: Apixaban [Eliquis] 5 mg PO BID 06/29/24 Aspirin [Aspirin EC 81 MG] 81 mg PO DAILY 06/29/24 Atorvastatin Calcium [Lipitor] 40 mg PO BEDTIME 06/29/24 Metformin ER [Glucophage ER] 1,000 mg PO BREAKFAST 06/29/24 Metformin ER [Glucophage ER] 500 mg PO DAILY AT SUPPER 06/29/24 Metoprolol Tartrate 100 mg PO BID 06/29/24 Diet: AHA Activity: Fall precautions Followup: Yovany Hernandez MD [Primary Care Provider] - Maxim Lopez MD [ACTIVE - CAN ADMIT] - Yi Dale NP [OUTSIDE PHYSICIAN] - Noel Albarran MD [ACTIVE - CAN ADMIT] - Time spent managing pt's care (in minutes): 55
[2024-06-30] MEDS: PIPER TAZO 3.375 GM in NA CHLORIDE 0.9% 100 ML IV SCH (09:12)
[2024-06-30 11:29] VITALS: O2SAT 96
[2024-06-30] MEDS ORDERED: ONDANSETRON 4 MG/2 ML VIAL IV PRN (11:38)
[2024-06-30 15:41] LABS: Specific Gravity 1.024 (1.005-1.030); Urine Bilirubin NEGATIVE (Negative); Urine Blood Negative (Negative); Urine Clarity Clear (Clear); Urine Color Yellow (Yellow); Urine Glucose NEGATIVE (Negative); Urine Ketones NEGATIVE (Negative); Urine Microscopic Reflex YN NO UMIC; Urine Nitrite NEGATIVE (Negative); Urine Protein NEGATIVE (Negative); Urine Urobilinogen 1+ (Normal)
[2024-06-30] MEDS: INSULIN REGULAR (HUMAN) 100 UNIT/ML SQ SCH (16:30)
[2024-06-30] MEDS: METOPROLOL TAR 50 MG TAB PO ONE (17:44)
[2024-06-30] MEDS: METOPROLOL TAR 50 MG TAB PO SCH (20:46)
[2024-06-30] MEDS: ATORVASTATIN 40 MG TAB PO SCH (20:47)
[2024-06-30] MEDS: MORPHINE 2 MG/ML SYR IV PRN (20:47)
[2024-06-30] MEDS ORDERED: APIXABAN 5 MG TABLET PO SCH (21:00)
[2024-06-30] MEDS ORDERED: METOPROLOL TAR 50 MG TAB PO SCH (21:00)
[2024-06-30] MEDS ORDERED: PIPER TAZO 3.375 GM in NA CHLORIDE 0.9% 100 ML IV SCH (22:00)
--- NOTE | 2024-06-30 22:05 | PN ---
Date of Progress Note: 06/30/2024 Subjective: Status post appendectomy of a suppurative appendix and also umbilical hernia repair. Th e patient is feeling better. No shortness of breath. No chest pain. Tolerating liquid diet. Objective: VITAL SIGNS: Temperature is 97.3, blood pressure 139/79. Laboratory Data: Blood work shows WBC count of 14.6, hemoglobin of 11.7. Potassium 3.8, creatinine 0.62. Assessment: Status post appendectomy of a suppurative appendix. Plan: Continue on antibiotics. Advance diet slowly. We will see how he does clinically. If he is afebrile and WBC improves, then he will be okay to go home. We have a JANUARY drain that has serosanguine ous present. We will continue with the Cm-Hyatt drain after he gets discharged, will remove it in my office. We encouraged incentive spirometry and ambulation. JOSE/MODL Voice ID: [id number] Report ID: [id number]
[2024-07-01] MEDS: APIXABAN 5 MG TABLET PO SCH (08:51)
[2024-07-01] MEDS: ASPIRIN EC 81 MG TAB PO SCH (08:51)
[2024-07-01 08:55] LABS: Absolute Basophils 0.1 K/uL (0-0.5); Absolute Eosinophils 0.4 K/uL (0-0.5); Absolute Lymphocytes (CBC) 1.1 K/uL (0.7-4.9); Absolute Monocytes 0.8 K/uL (0.1-1.3); Absolute Neutrophil 8.6 K/uL (1.8-8.0); Basophils % 0.6 % (0-1.3); Eosinophils % 3.9 % (0-4.4); Hematocrit 38.6 % (39.6-49.0); Hemoglobin 12.6 g/dL (13.6-17.9); MCH 27.2 pg (27.0-35.0); MCHC 32.6 g/dL (32.0-36.0); MCV 83.3 fL (80-100); MPV 8.9 fL (7.6-11.3); Monocytes % 7.1 % (3.3-12.3); Neutrophils % 78.4 % (41.7-73.7); Nucleated Red Blood Cells % 0.1 % (0-0); Platelets 208 thou/uL (152-406); RBC Red Blood Cell Count 4.63 M/uL (4.33-5.43); Red Cell Distribution Width 14.4 % (12.1-15.2)
[2024-07-01 09:00] LABS: Potassium 3.8 mEq/L (3.5-5.1)
[2024-07-01 09:01] LABS: Albumin 2.8 g/dL (3.4-5.0); Albumin/Globulin Ratio 0.8 (1.1-1.8); Anion Gap 6.8 mEq/L (5.0-15.0); Bilirubin Total 0.6 mg/dL (0.2-1.0); Globulin 3.5 g/dL (2.3-3.5); Protein, Total 6.3 g/dL (6.4-8.2)
--- NOTE | 2024-07-01 09:22 | P.PN ---
Date of Service: 07/01/24 Patient Name: BRIDGER RUCKER Date of : 1955 Patient Status: Inpatient Attending Provider: Kayy Hinojosa Date: 07/01/24 07:48 Initialization Date: 06/30/24 07:48 Admission Date: 06/29/24 Discharge Date: 07/01/24 Disposition: ROUTINE DISCHARGE Discharge Condition: GOOD Reason for Admission: Acute complicated appendicitis Brief History of Present Illness: Mr. Rucker is a 60-year-old gentleman who came to the hospital with abdominal pain. Patient had workup in the ER and findings revealed an acute appendicitis. Patient noted to have a 5.1 abdominal aortic aneurysm. Patient was taken to [facility] OR by General surgery. In the OR patient, he was found to have a complicated appendicitis and IV antibiotics needed to be continued. Patient will most likely have a prolonged hospital stay because of the complicated appendicitis. Patient also with multiple comorbidities including the AAA and will need to monitor his hemodynamics closely while in the hospital setting. At this time, patient will be admitted for inpatient hospitalization. - Physical Exam General: Alert, In no apparent distress, Oriented x3 HEENT: Atraumatic, PERRLA, Mucous membr. moist/pink, EOMI, Sclerae nonicteric Neck: Supple, 2+ carotid pulse no bruit, No LAD, Without JVD or thyroid abnormality Respiratory: Clear to auscultation bilaterally, Normal air movement Cardiovascular: Regular rate/rhythm, Normal S1 S2, No murmurs Gastrointestinal: Normal bowel sounds, Soft and benign, Non-distended, No rebound, No guarding, Tenderness Musculoskeletal: No clubbing, No swelling, No tenderness Integumentary: No rashes Neurological: Normal gait, Normal speech, Normal strength at 5/5 x4 extr, Normal tone, Sensation intact, Hospital Course: Status post 06/30 Laparoscopic appendectomy and umbilical hernia repair Dr. Albarran. Will discharge with a JANUARY drain, follow-up with surgery after discharge, call office for appointment, no lifting greater than 10 lbs, follow- up with cardiology after for abdominal aneurysm Assessment Abdominal pain Appendicitis status code laparoscopic cholecystectomy follow-up with Dr. Albarran after discharge Hernia with hernia repair Abdominal with Dr. Lopez after discharge Status post 06/30 Laparoscopic appendectomy and umbilical hernia repair per Dr. Albarran. Will discharge with a JANUARY drain, follow-up with surgery after discharge, call office for appointment, no lifting greater than 10 lbs, follow- up with cardiology for abdominal aneurysm evaluation Continue home medicines as previously prescribed GOAL: Clear understanding of disease process INSTRUCTIONS: Physician Discharge Instructions: -Follow-up with Dr. Lopez after discharge for abdominal aortic aneurysm -Follow-up with Dr. Albarran after discharge for removal of JANUARY drain status post appendectomy and hernia repair -Follow-up with PCP in 1 to 2 weeks -Please call Dr. Hinojosa at [phone] if any questions regarding hospital stay -Please call nursing station at [phone] if any nursing or medication questions -Return to the emergency room if symptoms worsen Diet: ADA, low sodium Activity: Fall precautions Vital Signs/Physical Exam: Temp Pulse Resp BP Pulse Ox 97 F 79 16 135/86 95 06/30/24 04:00 06/30/24 04:00 06/30/24 04:00 06/30/24 04:00 06/30/24 04:00 Laboratory Data at Discharge: WBC 14.60 thou/uL (4.3-10.9) H 06/30/24 05:59 Hgb 11.7 g/dL (13.6-17.9) L D 06/30/24 05:59 Hct 36.8 % (39.6-49.0) L 06/30/24 05:59 Plt Count 188 thou/uL (152-406) 06/30/24 05:59 PT 13.4 SECONDS (9.4-12.5) H 06/30/24 05:59 INR 1.20 06/30/24 05:59 APTT 28.4 SECONDS (24.3-36.9) 06/30/24 05:59 Sodium 143 mEq/L (136-145) 06/30/24 05:39 Potassium 3.8 mEq/L (3.5-5.1) 06/30/24 05:39 BUN 8 mg/dL (7-18) 06/30/24 05:39 Creatinine 0.62 mg/dL (0.70-1.30) L 06/30/24 05:39 Glucose 112 mg/dL (74-106) H 06/30/24 05:39 Magnesium 2.2 mg/dL (1.6-2.4) 06/29/24 10:46 Total Bilirubin 0.6 mg/dL (0.2-1.0) 06/30/24 05:39 AST 12 U/L (15-37) L 06/30/24 05:39 ALT 16 U/L (16-61) 06/30/24 05:39 Alkaline Phosphatase 91 U/L (45-117) 06/30/24 05:39 Triglycerides 55 mg/dL (<150) 06/30/24 05:39 Cholesterol 79 mg/dL (<200) 06/30/24 05:39 HDL Cholesterol 40 mg/dL (40-60) 06/30/24 05:39 Cholesterol/HDL Ratio 1.98 06/30/24 05:39 Lipase 46 U/L (13-75) 06/29/24 10:46 Home Medications: Apixaban [Eliquis] 5 mg PO BID 06/29/24 Aspirin [Aspirin EC 81 MG] 81 mg PO DAILY 06/29/24 Atorvastatin Calcium [Lipitor] 40 mg PO BEDTIME 06/29/24 Metformin ER [Glucophage ER] 1,000 mg PO BREAKFAST 06/29/24 Metformin ER [Glucophage ER] 500 mg PO DAILY AT SUPPER 06/29/24 Metoprolol Tartrate 100 mg PO BID 06/29/24 Diet: AHA Activity: Fall precautions Followup: Yovany Hernandez MD [Primary Care Provider] - Maxim Lopez MD [ACTIVE - CAN ADMIT] - Yi Dale NP [OUTSIDE PHYSICIAN] - Noel Albarran MD [ACTIVE - CAN ADMIT] - Time spent managing pt's care (in minutes): 55
[2024-07-01 11:57] VITALS: BP 140/84; TEMP 98.4
--- NOTE | 2024-07-02 13:00 | EKG ---
Test Date: 2024-06-29 Test Time: 11:10:00 Hospital Medical Biller: ASAF MEASUREMENT RESULTS: Intervals: Rate: 79 AL: 212 QRSD: 104 QT: 408 QTc: 467 [place]: P: 53 AL: 212 QRS: 3 T: 54 INTERPRETIVE STATEMENTS: Sinus rhythm with 1st degree AV block Otherwise normal ECG Compared to ECG 06/17/2011 10:11:45 First degree AV block now present Electronically Signed On 07-02-24 12:52:31 CDT by James Ibanez
== END 2024-07-01 12:42 | disposition home or self-care (01) | DRG 399 ==
LOC: ER 10:14 → ERHOLD 13:20 → 2ND 14:39 → OBSVTOIN 06-30 01:15
PROVIDERS: ADMIT Hospitalist; ATTEND Hospitalist
PROC: 0WQF4ZZ Repair Abdominal Wall, Percutaneous Endoscopic Approach (ICD-10-PCS; 2024-06-29)
PROC: 0DTJ4ZZ Resection of Appendix, Percutaneous Endoscopic Approach (ICD-10-PCS; principal; 2024-06-29 14:00)
DX: K35.30 Acute appendicitis with localized peritonitis, without perforation or gangrene (principal); K42.9 Umbilical hernia without obstruction or gangrene; I10 Essential (primary) hypertension; I48.91 Unspecified atrial fibrillation; E78.5 Hyperlipidemia, unspecified; I71.40 Abdominal aortic aneurysm, without rupture, unspecified; J44.9 Chronic obstructive pulmonary disease, unspecified; K40.20 Bilateral inguinal hernia, without obstruction or gangrene, not specified as recurrent; E66.9 Obesity, unspecified; Z95.2 Presence of prosthetic heart valve; Z95.1 Presence of aortocoronary bypass graft; Z68.29 Body mass index [BMI] 29.0-29.9, adult; Z79.82 Long term (current) use of aspirin; Z79.84 Long term (current) use of oral hypoglycemic drugs; Z79.899 Other long term (current) drug therapy
CPT/HCPCS: 36415; 71045; 74177; 80048; 80053; 80061; 80076; 81003; 82947; 83690; 83735; 83880; 84484; 85025; 85610; 85730; 88302; 88304; 93005; 94010; 96361; 96365; 96367; 96375; 99285; G0378; J0744; J1100; J2001; J2250; J2270; J2405; J2543; J2704; J3010; J7030; J7120; Q9967

== ENCOUNTER 2024-12-18 06:17 | Day surgery (SDC) | payer OTHER ==
[2024-12-16 14:31] LABS: Absolute Eosinophils 0.2 K/uL (0-0.5); Absolute Lymphocytes (CBC) 1.5 K/uL (0.7-4.9); Absolute Monocytes 0.5 K/uL (0.1-1.3); Absolute Neutrophil 5.2 K/uL (1.8-8.0); Basophils % 0.5 % (0-1.3); Eosinophils % 2.6 % (0-4.4); Hematocrit 42.5 % (39.6-49.0); Lymphocytes % 20.4 % (15.3-44.8); MCH 27.2 pg (27.0-35.0); MCHC 33.1 g/dL (32.0-36.0); MCV 82.2 fL (80-100); MPV 8.9 fL (7.6-11.3); Monocytes % 6.7 % (3.3-12.3); Neutrophils % 69.8 % (41.7-73.7); Nucleated Red Blood Cells % 0.1 % (0-0); Platelets 187 thou/uL (152-406); RBC Red Blood Cell Count 5.17 M/uL (4.33-5.43); Red Cell Distribution Width 14.3 % (12.1-15.2)
[2024-12-16 14:45] LABS: Anion Gap 6.2 mEq/L (5.0-15.0); Potassium 4.2 mEq/L (3.5-5.1)
--- NOTE | 2024-12-17 10:56 | EKG ---
Test Date: 2024-12-16 Test Time: 14:05:26 Horizontal Boring Mill Operator: MICHEAL MEASUREMENT RESULTS: Intervals: Rate: 69 RI: 218 QRSD: 102 QT: 428 QTc: 458 [place]: P: 39 RI: 218 QRS: -9 T: 4 INTERPRETIVE STATEMENTS: Sinus rhythm with 1st degree AV block Inferior infarct, age undetermined Abnormal ECG Compared to ECG 06/29/2024 11:10:00 Myocardial infarct finding now present Electronically Signed On 12-17-24 10:54:52 CDT by James Ibanez
[2024-12-18] MEDS: NA CHLORIDE 0.9% 1,000 ML ONE (07:00)
[2024-12-18] MEDS ORDERED: propofoL 200 MG/20 ML VIAL IV ONE (07:22)
[2024-12-18] MEDS ORDERED: LIDOCAINE 1% MPF 2 ML AMPULE ONE (07:22)
[2024-12-18 08:31] VITALS: BP 116/79; TEMP 97.5; O2SAT 97
== END 2024-12-18 08:48 | disposition home or self-care (01) ==
LOC: OR 06:17
PROVIDERS: ATTEND Surgery
PROC: 0DJD8ZZ Inspection of Lower Intestinal Tract, Via Natural or Artificial Opening Endoscopic (ICD-10-PCS; principal; 2024-12-18 07:30)
DX: Z12.11 Encounter for screening for malignant neoplasm of colon (principal); K57.30 Diverticulosis of large intestine without perforation or abscess without bleeding; K64.4 Residual hemorrhoidal skin tags; K64.8 Other hemorrhoids; Z86.0100 Personal history of colon polyps, unspecified
CPT/HCPCS: 93005; 85025; 80048; 36415; 82947; J2704; J7030; G0121